=== PATIENT | female | born 1960 | race Caucasian/White ===

== ENCOUNTER 2017-03-16 14:50 | Emergency (ER) | payer MEDICARE, OTHER ==
[~2017-03-16] VITALS: Ht 167.6 cm; Wt 59.0 kg
[~2017-03-16 14:50] MED LIST: AMBI10TA PO; FENT50DI TD; INVE9TAB OR; TRAZ150T75 PO
[2017-03-16 14:52] VITALS: BP 111/65; PULSE 85; RESP 20; TEMP 98.9; O2SAT 94
[2017-03-16] MEDS ORDERED: MORP1TAB27 PO (15:37)
[2017-03-16] MEDS ORDERED: TRAZ300T2 PO (15:37)
[2017-03-16] MEDS ORDERED: AMBI10TA PO (15:37)
[2017-03-16] MEDS ORDERED: INVE9TAB PO (15:37)
[2017-03-16] MEDS ORDERED: OXYB5TAB8 PO (15:37)
--- NOTE | 2017-03-16 15:41 | PD ---
HPI . Foreign body Chief Complaint: Foreign Body Time Seen by Provider: 15:38 Travel History International Travel<30 days: No Contact w/Intl Traveler<30days: No Traveled to known affect area: No History of Present Illness HPI Patient presents stating that she has a probable foreign body in her left great toe. She states that she cut the toe 2 months ago. The laceration healed that she has continued to have a foreign body sensation. She subsequently presents to us today for evaluation. Her foreign body sensation is exacerbated by walking. PFSH Past Medical History ?: Not Social History Alcohol Use: No Tobacco Use: Yes Allergies-Medications (Allergen,Severity, Reaction): Coded Allergies: cyanocobalamin (vitamin B12) (Unverified Allergy, Severe, itch, 03/16/17) penicillin G (Unverified Allergy, Severe, rash, 03/16/17) Reported Meds & Prescriptions Reported Meds & Active Scripts Active Reported Ditropan (Oxybutynin Chloride) 5 Mg Tab 5 Mg PO HS Trazodone (Trazodone HCl) 300 Mg Tab 300 Mg PO HS Ambien (Zolpidem Tartrate) 10 Mg Tab 10 Mg PO HS PRN Morphine ER (Morphine Sulfate) 100 Mg Tab 100 Mg PO DAILY Invega (Paliperidone ER) 9 Mg Tab 9 Mg PO DAILY Review of Systems Except as stated in HPI: all other systems reviewed are Neg Physical Exam Narrative GENERAL: Awake and alert and in no acute distress. SKIN: Warm and dry with no rash or lesions. The laceration on the plantar surface of her left great toe is well-healed. HEAD: Cephalic/atraumatic. EYES: Pupils are equal. Extraocular movements are intact. NECK: Supple. RESPIRATORY: Nonlabored respirations. MUSCULOSKELETAL: Atraumatic. NEUROLOGICAL: Nonfocal. PSYCHIATRIC: Appropriate mood and affect. Data Data Last Documented VS Vital Signs Date Time Temp Pulse Resp B/P (MAP) Pulse Ox O2 Delivery O2 Flow Rate FiO2 03/16/17 14:52 98.9 85 20 111/65 (80) 94 Room Air Orders Orders Toe (Min 2vws) (03/16/17 15:50) MDM Medical Decision Making Medical Screen Exam Complete: Yes Emergency Medical Condition: Yes Differential Diagnosis Differential diagnosis includes but is not limited to simple foreign body, foreign body with wound infection, foreign body with cellulitis, foreign body with neurovascular compromise. Narrative Course Patient presents stating that she thinks she has a foreign body in her left great toe. X-ray is pending. Telma Espana MD Mar 16, 2017 15:41
--- NOTE | 2017-03-16 16:12 | RADRPT ---
EXAM DATE/TIME: 03/16/2017 15:55 [facility] COMPARISON: No previous studies available for comparison. INDICATIONS : Evaluate for foreign body in center of great toe after stepping on glass. MEDICAL HISTORY : None. SURGICAL HISTORY : None. ENCOUNTER: Initial ACUITY: 2 months PAIN SCORE: 3/10 LOCATION: Left Great toe FINDINGS: Examination of the first digit of the left foot demonstrates no evidence of fracture or dislocation. No radiopaque foreign bodies are seen. The soft tissues are intact. Reduced bone mineralization. CONCLUSION: 1. Osteopenia. 2. No radiopaque foreign body observed. Guerrero Grossman Jr., MD on March 16, 2017 at 16:10 Board Certified Radiologist. This report was verified electronically.
[2017-03-16] MEDS ORDERED: LIDOCAINE HCL 1% 50 ML VIAL INFIL ONE (17:00)
[2017-03-16] MEDS ORDERED: LIDOCAINE HCL 1% PF 30 ML VIAL ONE (17:08)
--- NOTE | 2017-03-16 17:15 | PD ---
Physical Exam Date Seen by Provider: Mar 16, 2017 Time Seen by Provider: 17:08 Narrative GENERAL: Well-nourished, well-developed female in no acute distress. Afebrile. Ambulatory. SKIN: Focused skin assessment warm/dry. There is a hard, palpable foreign body on the plantar surface of the left great toe which measures about 1 cm in diameter. No fluctuance, pointing, drainage, inflammation, or lymphangitis. HEAD: Normocephalic. EYES: No scleral icterus. No injection or drainage. NECK: Supple, trachea midline. No JVD or lymphadenopathy. CARDIOVASCULAR: Regular rate and rhythm without murmurs, gallops, or rubs. RESPIRATORY: Breath sounds equal bilaterally. No accessory muscle use. MUSCULOSKELETAL: No cyanosis, or edema. Full range of motion of the left great toe. Data Data Last Documented VS Vital Signs Date Time Temp Pulse Resp B/P (MAP) Pulse Ox O2 Delivery O2 Flow Rate FiO2 03/16/17 14:52 98.9 85 20 111/65 (80) 94 Room Air Orders Orders Toe (Min 2vws) (03/16/17 15:50) Lidocaine 1% Inj (50 Ml) (Xylocaine 1% I (03/16/17 17:00) Lidocaine Pf 1% Inj (Xylocaine-Mpf 1% In (03/16/17 17:08) Ed Discharge Order (03/16/17 17:34) MDM Medical Record Reviewed: Yes Supervised Visit with ANDREA: Yes Narrative Course Patient signed out to me pending x-ray results. In short, this is a 57-year-old female who complains of foreign body sensation to her left great toe for the past 2 months. States she stepped on broken glass 2 months ago and has had persistent pain over the area since the Physical exam reveals a hard, palpable mass to the plantar surface of the left great toe. It does not appear deep. No evidence of infection. Tender to palpation. X-ray is negative but I suspect radiolucent foreign body. Foreign body removal was performed. Patient discharged with wound care instructions and told to follow up with PCP or return for worsening symptoms. She understands and agrees to plan. Procedures Procedure Narrative Foreign body removal: The area was prepped and was sterilely draped. A subcutaneous wheal of 1% lidocaine with a total number 3 mL was used to anesthetize the area properly. A number 11 scalpel was used to make a 0.5 cm incision across the area of the foreign body. It was irrigated with normal saline. Sterile dressing applied. Diagnosis Primary Impression: Foreign body of toe Qualified Codes: S90.455A - Superficial foreign body, left lesser toe(s), initial encounter Referrals: Primary Care Physician Additional Instruction: Rest and drink plenty of fluids. Keep wound clean and dry. Apply triple antibiotic appointment daily. Follow-up with a primary care physician. Return to the emergency room for worsening symptoms. Med/Other Pt SpecificInfo: Prescription(s) given Disposition: 01 DISCHARGE HOME Condition: Stable Cecelia Bates Mar 16, 2017 17:15
== END 2017-03-16 17:56 | disposition home or self-care (01) ==
LOC: NEPD 14:50
DX: S90.452A Superficial foreign body, left great toe, initial encounter (principal); X58.XXXA Exposure to other specified factors, initial encounter; Z88.0 Allergy status to penicillin
CPT/HCPCS: 10120; 73660

== ENCOUNTER 2017-09-10 18:05 | Inpatient (IN) | payer MEDICARE ==
[~2017-09-10] VITALS: Ht 167.6 cm; Wt 64.1 kg
[~2017-09-10 18:05] MED LIST changes: -FENT50DI TD; -INVE9TAB OR; +INVE9TAB PO; +MORP1TAB27 PO; +OXYB5TAB8 PO; -TRAZ150T75 PO; +TRAZ300T2 PO
[2017-09-10] MEDS ORDERED: SODIUM CHLOR 0.9% 1000 ML INJ 800 ML IV ONE (18:19)
[2017-09-10] MEDS ORDERED: SODIUM CHLOR 0.9% 1000 ML INJ 1,000 ML IV ONE (18:19)
[2017-09-10 18:26] VITALS: BP 109/55; PULSE 113; RESP 21; TEMP 101.1; O2SAT 89
[2017-09-10] MEDS ORDERED: ACETAMINOPHEN 650 MG SUPP RECTAL ONE (18:30)
[2017-09-10] MEDS ORDERED: CEFEPIME INJ 2,000 MG in SODIUM CHLORIDE 0.9% INJ 100 ML IV ONE (18:30)
[2017-09-10] MEDS ORDERED: VANCOMYCIN INJ 1,000 MG in SODIUM CHLOR 0.9% 250 ML INJ 250 ML IV ONE (18:30)
--- NOTE | 2017-09-10 18:48 | RADRPT ---
EXAM DATE/TIME: 09/10/2017 18:26 [facility] COMPARISON: No previous studies available for comparison. INDICATIONS : Patient is non-responsive. RADIATION DOSE: 56.35 CTDIvol (mGy) MEDICAL HISTORY : Non-responsive. SURGICAL HISTORY : Non-responsive. ENCOUNTER: Initial ACUITY: 1 day PAIN SCALE: Non-responsive LOCATION: abdomen TECHNIQUE: Multiple contiguous axial images were obtained of the head. Using automated exposure control and adj ustment of the mA and/or kV according to patient size, radiation dose was kept as low as reasonably a chievable to obtain optimal diagnostic quality images. DICOM format image data is available electro nically for review and comparison. FINDINGS: CEREBRUM: The ventricles are normal for age. There is 9 mm area of spontaneously dense material in the right in sula area suspicious for some focal acute parenchymal hemorrhage. There is an area of encephalomalaci a involving the posterior left temporal lobe area suggestive of an old infarct.. No extra-axial flui d collections are seen. POSTERIOR FOSSA: The cerebellum and brainstem are intact. The 4th ventricle is midline. The cerebellopontine angle i s unremarkable. EXTRACRANIAL: The visualized portion of the orbits is intact. SKULL: The calvaria is intact. No evidence of skull fracture. CONCLUSION: 1. 9 mm area of spontaneously dense material in the right insular area suspicious for focal acute int raparenchymal hemorrhage. 2. 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 Boy Monet MD on September 10, 2017 at 18:42 Board Certified Radiologist. This report was verified electronically.
--- NOTE | 2017-09-10 18:51 | RADRPT ---
EXAM DATE/TIME: 09/10/2017 18:27 [facility] COMPARISON: No previous studies available for comparison. INDICATIONS : Patient is non responsive. ORAL CONTRAST: No oral contrast ingested. RADIATION DOSE: 6.77 CTDIvol (mGy) MEDICAL HISTORY : Non-responsive. SURGICAL HISTORY : Non-responsive. ENCOUNTER: Initial ACUITY: 1 day PAIN SCALE: Non-responsive LOCATION: abdomen TECHNIQUE: Volumetric scanning of the abdomen and pelvis was performed. Using automated exposure control and ad justment of the mA and/or kV according to patient size, radiation dose was kept as low as reasonably achievable to obtain optimal diagnostic quality images. DICOM format image data is available electro nically for review and comparison. The lack of IV contrast limits the diagnosis for certain organ pa thology. FINDINGS: LOWER LUNGS: Right lower lung atelectasis. Left lung base clear. LIVER: Homogeneous density without lesion. There is no dilation of the biliary tree. No calcified gallston es. SPLEEN: Normal size without lesion. PANCREAS: Within normal limits. KIDNEYS: Normal in size and shape. There is no mass, stone, or hydronephrosis. ADRENAL GLANDS: Within normal limits. VASCULAR: There is no aortic aneurysm. BOWEL/MESENTERY: The stomach, small bowel, and colon demonstrate no acute abnormality. There is no free intraperitone al air or fluid. Moderate stool throughout the colon. No inflammatory changes. The appendix is unrema rkable. ABDOMINAL WALL: Within normal limits. RETROPERITONEUM: There is no lymphadenopathy. BLADDER: No wall thickening or mass. REPRODUCTIVE: The uterus is normal in size. There is a left adnexal cyst measuring 3.1 x 1.8 cm. No free fluid in t he cul-de-sac. INGUINAL: There is no lymphadenopathy or hernia. MUSCULOSKELETAL: Within normal limits for patient age. CONCLUSION: 1. 3.1 x 1.8 cm left adnexal cyst. 2. Atelectasis in the right lower lung. 3. Otherwise, unremarkable examination for patient's age. Boy Monet MD on September 10, 2017 at 18:46 Board Certified Radiologist. This report was verified electronically.
[2017-09-10 18:53] LABS: AUTOMATED NEUTROPHIL # 9.9 TH/MM3 (1.8-7.7); BASOPHIL % 0.3 % (0.0-2.0); HEMATOCRIT 41.8 % (35.0-46.0); HEMOGLOBIN 14.2 GM/DL (11.6-15.3); LYMPH % 4.4 % (9.0-44.0); LYMPHOCYTE # 0.5 TH/MM3 (1.0-4.8); MEAN CELL VOLUME 94.1 FL (80.0-100.0); MEAN CORPUSCULAR HEMOGLOBIN 31.9 PG (27.0-34.0); MEAN CORPUSCULAR HGB CONC 33.9 % (32.0-36.0); MEAN PLATELET VOLUME 8.4 FL (7.0-11.0); MONO % 10.2 % (0.0-8.0); MONOCYTE # 1.2 TH/MM3 (0-0.9); NEUT % 85.1 % (16.0-70.0); PLATELET COUNT 240 TH/MM3 (150-450); RED BLOOD COUNT 4.44 MIL/MM3 (4.00-5.30); RED CELL DISTRIBUTION WIDTH 13.2 % (11.6-17.2); WHITE BLOOD COUNT 11.6 TH/MM3 (4.0-11.0)
[2017-09-10 19:02] VITALS: O2SAT 98
[2017-09-10 19:03] VITALS: BP 113/69; PULSE 92; RESP 16; O2SAT 98
--- NOTE | 2017-09-10 19:07 | RADRPT ---
EXAM DATE/TIME: 09/10/2017 18:42 [facility] COMPARISON: No previous studies available for comparison. INDICATIONS : Fever MEDICAL HISTORY : Unresponsive SURGICAL HISTORY : Unresponsive ENCOUNTER: Initial ACUITY: 1 day PAIN SCORE: Non-responsive. LOCATION: chest FINDINGS: A single view of the chest demonstrates the lungs to be symmetrically aerated without evidence of mas s, infiltrate or effusion. The cardiomediastinal contours are unremarkable. Osseous structures are intact. CONCLUSION: No acute disease. Boy Monet MD on September 10, 2017 at 19:04 Board Certified Radiologist. This report was verified electronically.
[2017-09-10 19:16] LABS: INTERNATIONAL NORMALIZED RATIO 1.1 RATIO; PROTHROMBIN TIME - PATIENT 11.3 SEC (9.8-11.6)
[2017-09-10 19:19] LABS: BACTERIA, URINE MANY /hpf; BILIRUBIN, URINE NEG (NEG); BLOOD, URINE NEG (NEG); GLUCOSE,URINE NEG (NEG); KETONE, URINE NEG (NEG); NITRITE,URINE NEG (NEG); PH, URINE 5.5 (5.0-8.5); SQUAMOUS EPITHELIAL CELL URINE 1 /hpf (0-5); URINE COLOR YELLOW (YELLW/STRAW); URINE LEUKOCYTE ESTERASE LARGE (NEG)
[2017-09-10 19:28] LABS: ALKALINE PHOSPHATASE 77 U/L (45-117); ALT (GPT) 12 U/L (10-53); TOTAL BILIRUBIN ADULT 0.4 MG/DL (0.2-1.0); TOTAL PROTEIN 6.9 GM/DL (6.4-8.2)
[2017-09-10 19:29] LABS: ALBUMIN 3.4 GM/DL (3.4-5.0); AST (GOT) 25 U/L (15-37); BICARBONATE 27.2 MEQ/L (21.0-32.0); BLOOD UREA NITROGEN 11 MG/DL (7-18); CALCIUM 8.1 MG/DL (8.5-10.1); CHLORIDE 104 MEQ/L (98-107); CREATININE 1.38 MG/DL (0.50-1.00); GLOMERULAR FILTRATION RATE 39 ML/MIN (>89); GLUCOSE,RANDOM 163 MG/DL (74-106); SODIUM (NA) 140 MEQ/L (136-145)
--- NOTE | 2017-09-10 19:50 | PD ---
HPI Chief Complaint: Altered Mental Status Time Seen by Provider: 18:19 Travel History International Travel<30 days: No Contact w/Intl Traveler<30days: No Traveled to known affect area: No History of Present Illness HPI 57-year-old female brought in by ambulance from home for evaluation of fever and altered mental status. Shortly after the patient arrived to the emergency department, the patient's fianc J Luis Zaragoza arrived and was able to provide history. He states that yesterday evening they went out and played pool and had a couple of drinks. The patient takes morphine for chronic pain from fibromyalgia, trazodone, and Ambien. She usually wakes up at around 10:00 AM. The patient's fianc usually wakes up earlier than she does. Today at around noon she was not yet awake. He tried to arouse her, but believe that may be alcohol mixed with her drinks was causing her to sleep then. Around 3:00 PM he noticed that she was still in bed and was minimally arousable. At around 4:30 PM she remained in the same state, so at this time he decided to call 911. Upon arrival the patient is awake, keeps her eyes open, has slight gaze deviation to the right, no focal deficits, follows commands, answers some yes and no questions but otherwise does not speak. She says no to having head or neck pain. She says yes when asked if she has abdominal pain and points to her lower abdomen. Patient and the patient's deny IV drug use. PFSH Past Medical History Diminished Hearing: No Fibromyalgia: Yes Tetanus Vaccination: Unknown ?: Unknown Past Surgical History Tonsillectomy: Yes Other Surgery: Yes (rhinoplasty ) Social History Alcohol Use: No Tobacco Use: Yes Substance Use: No Allergies-Medications (Allergen,Severity, Reaction): Coded Allergies: cyanocobalamin (vitamin B12) (Verified Allergy, Severe, itch, 09/10/17) penicillin G (Verified Allergy, Severe, rash, 09/10/17) Reported Meds & Prescriptions Reported Meds & Active Scripts Active Reported Ditropan (Oxybutynin Chloride) 5 Mg Tab 5 Mg PO HS Trazodone (Trazodone HCl) 300 Mg Tab 300 Mg PO HS Ambien (Zolpidem Tartrate) 10 Mg Tab 10 Mg PO HS PRN Morphine ER (Morphine Sulfate) 100 Mg Tab 100 Mg PO DAILY Invega (Paliperidone ER) 9 Mg Tab 9 Mg PO DAILY Review of Systems ROS Limitations: Clinical Condition, Altered Mental Status Physical Exam Narrative GENERAL: Well-developed, well-nourished, awake, alert, answers to yes and no questions only, no apparent distress. SKIN: Focused skin assessment warm/dry. HEAD: Atraumatic. Normocephalic. EYES: Pupils equal, round, 3 mm, reactive to light. Slight gaze deviation to the right. No scleral icterus. No injection or drainage. ENT: No nasal bleeding or discharge. Mucous membranes pink and moist. NECK: Trachea midline. No JVD. No nuchal rigidity. CARDIOVASCULAR: Tachycardic, rate 110, regular. RESPIRATORY: No accessory muscle use. Clear to auscultation. Breath sounds equal bilaterally. GASTROINTESTINAL: Abdomen soft, nondistended. Mild suprapubic tenderness without peritoneal signs. Normal bowel sounds. MUSCULOSKELETAL: No obvious deformities. No clubbing. No cyanosis. No edema. NEUROLOGICAL: Awake, slight gaze deviation to the right, otherwise no focal deficits. Answers yes/no questions only with slow response. PSYCHIATRIC: Unable to assess. Data Data Last Documented VS Vital Signs Date Time Temp Pulse Resp B/P (MAP) Pulse Ox O2 Delivery O2 Flow Rate FiO2 09/10/17 19:03 92 16 113/69 (84) 98 Nasal Cannula 2.00 09/10/17 18:26 101.1 Orders Orders Sepsis Workup Initiated (09/10/17 ) Complete Blood Count With Diff (09/10/17 18:19) Comprehensive Metabolic Panel (09/10/17 18:19) Prothrombin Time / Inr (Pt) (09/10/17 18:19) Act Partial Throm Time (Ptt) (09/10/17 18:19) Lactic Acid Sepsis Protocol (09/10/17 18:19) Urinalysis - C+S If Indicated (09/10/17 18:19) Influenzae A/B Antigen (09/10/17 18:19) Blood Culture (09/10/17 18:19) Chest, Single Ap (09/10/17 18:19) Blood Glucose (09/10/17 18:19) Ecg Monitoring (09/10/17 18:19) Iv Access Insert/Monitor (09/10/17 18:19) Oximetry (09/10/17 18:19) Oxygen Administration (09/10/17 18:19) Acetaminophen Supp (Tylenol Supp) (09/10/17 18:30) Ct Abd/Pel W/O Iv Contrast (09/10/17 18:19) Ct Brain W/O Iv Contrast(Rout) (09/10/17 18:19) Sodium Chlor 0.9% 1000 Ml Inj (Ns 1000 M (09/10/17 18:19) Sodium Chlor 0.9% 1000 Ml Inj (Ns 1000 M (09/10/17 18:19) Thyroid Stimulating Hormone (09/10/17 18:19) Ammonia (09/10/17 18:19) Vancomycin Inj (Vancomycin Inj) (09/10/17 18:30) Cefepime Inj (Maxipime Inj) (09/10/17 18:30) Consult Neurosurgery (09/10/17 ) Cta Brain W Iv Contrast W 3d (09/10/17 ) Cta Neck W Iv Contrast W 3d (09/10/17 ) Urine Culture (09/10/17 19:00) (Hub Use Only)Inp Phy Cons/Ref (09/10/17 ) Labs Laboratory Tests Test 09/10/17 18:30 09/10/17 19:00 White Blood Count 11.6 TH/MM3 Red Blood Count 4.44 MIL/MM3 Hemoglobin 14.2 GM/DL Hematocrit 41.8 % Mean Corpuscular Volume 94.1 FL Mean Corpuscular Hemoglobin 31.9 PG Mean Corpuscular Hemoglobin Concent 33.9 % Red Cell Distribution Width 13.2 % Platelet Count 240 TH/MM3 Mean Platelet Volume 8.4 FL Neutrophils (%) (Auto) 85.1 % Lymphocytes (%) (Auto) 4.4 % Monocytes (%) (Auto) 10.2 % Eosinophils (%) (Auto) 0.0 % Basophils (%) (Auto) 0.3 % Neutrophils # (Auto) 9.9 TH/MM3 Lymphocytes # (Auto) 0.5 TH/MM3 Monocytes # (Auto) 1.2 TH/MM3 Eosinophils # (Auto) 0.0 TH/MM3 Basophils # (Auto) 0.0 TH/MM3 CBC Comment DIFF FINAL Differential Comment Prothrombin Time 11.3 SEC Prothromb Time International Ratio 1.1 RATIO Activated Partial Thromboplast Time 24.3 SEC Blood Urea Nitrogen 11 MG/DL Creatinine 1.38 MG/DL Random Glucose 163 MG/DL Total Protein 6.9 GM/DL Albumin 3.4 GM/DL Calcium Level 8.1 MG/DL Alkaline Phosphatase 77 U/L Aspartate Amino Transf (AST/SGOT) 25 U/L Alanine Aminotransferase (ALT/SGPT) 12 U/L Total Bilirubin 0.4 MG/DL Sodium Level 140 MEQ/L Potassium Level 4.4 MEQ/L Chloride Level 104 MEQ/L Carbon Dioxide Level 27.2 MEQ/L Anion Gap 9 MEQ/L Estimat Glomerular Filtration Rate 39 ML/MIN Lactic Acid Level 2.0 mmol/L Ammonia 36 MCMOL/L Thyroid Stimulating Hormone 3rd Gen 0.818 uIU/ML Urine Color YELLOW Urine Turbidity HAZY Urine pH 5.5 Urine Specific Ruso 1.005 Urine Protein NEG mg/dL Urine Glucose (UA) NEG mg/dL Urine Ketones NEG mg/dL Urine Occult Blood NEG Urine Nitrite NEG Urine Bilirubin NEG Urine Urobilinogen LESS THAN 2.0 MG/DL Urine Leukocyte Esterase LARGE Urine RBC 1 /hpf Urine WBC 13 /hpf Urine Squamous Epithelial Cells 1 /hpf Urine Bacteria MANY /hpf Microscopic Urinalysis Comment CATH-CULTURE IND MDM Medical Decision Making Medical Screen Exam Complete: Yes Emergency Medical Condition: Yes Differential Diagnosis Sepsis, meningitis, encephalitis, intracranial abnormality, metabolic encephalopathy, UTI, pneumonia, bacteremia Narrative Course Patient was probably taken to CT for CT of the head shortly after my assessment. CT of the head shows a 9 mm area of spontaneous dense material in the right insular area suspicious for focal acute intraparenchymal hemorrhage. There is also focal encephalomalacia involving the left posterior temporal lobe suggestive of an old infarct. 7:10 PM: Case discussed with neurosurgeon Dr. Garcia. He recommends CTA of the brain and admission to the ICU. At this time the patient is awake and alert, follows commands, and her airway is patent and protected. Patient was empirically started on vancomycin and cefepime for her fever with change in mental status, tachycardia, and slight hypoxia. The patient is a heavy smoker smoking a pack per day and likely has COPD. Initial vital signs show heart rate 113, blood pressure 109/55, pulse ox 89% on room air, rectal temp of 101.1F. CBC: WBC 11.6, hemoglobin 14.2, hematocrit 41.8, platelets 240, neutrophils 85% , monocytes 10.2%. CMP is remarkable for creatinine 1.3, GFR 39, otherwise unremarkable. Ammonia level is 36. Lactic acid is 2. TSH is 0.818. Coags are within normal limits. UA: Large leukocyte esterase, 13 WBCs, many bacteria, culture indicated. Chest x-ray shows no acute disease. CT abdomen pelvis: 3.1 x 1.8 cm left adnexal cyst, atelectasis in the right lower lung, otherwise unremarkable exam for a patient of this age. Patient will be admitted to the ICU for further treatment and evaluation of intra-parenchymal hemorrhage, sepsis, UTI, altered mental status. The patient' s significant other/felix Zaragoza was made aware of all findings and plan for admission to the ICU. Critical Care Narrative Aggregate critical care time was 45 minutes. Time to perform other separately billable procedures was not included in the critical care time. My time did not include minutes spent treating any other patients simultaneously or on activities that did not directly contribute to the patient's treatment. The services I provided to this patient were to treat and/or prevent clinically significant deterioration that could result in: , permanent disability, worsening clinical condition, septic shock I provided critical care services requiring my management, as noted below: Chart data review, documentation time, medication orders and management, vital sign assessments/reviewing monitor data, ordering and reviewing lab tests, ordering and interpreting/reviewing x-rays and diagnostic studies, care of the patient and discussion of the patient with the admitting physicians. Diagnosis Primary Impression: Intraparenchymal hemorrhage of brain Additional Impressions: Sepsis Qualified Codes: A41.9 - Sepsis, unspecified organism UTI (urinary tract infection) Qualified Codes: N39.0 - Urinary tract infection, site not specified; R31.9 - Hematuria, unspecified Altered mental status Qualified Codes: R40.1 - Stupor Admitting Information Admitting Physician Requests: Admit Harmeet Parikh MD September 10, 2017 19:50
[2017-09-10] MEDS ORDERED: IOHEXOL 350 MG/ML 10 ML VIAL (for RAD DIAG) IVCONTRAST ONE (20:30)
--- NOTE | 2017-09-10 20:36 | RADRPT ---
EXAM DATE/TIME: 09/10/2017 20:05 [facility] COMPARISON: No previous studies available for comparison. INDICATIONS : Hemorrhage. Evaluate for anuerysm. IV CONTRAST: 80 cc Omnipaque 350 (iohexol) IV ; Cumulative dose for multiple exams. RADIATION DOSE: 8.98 CTDIvol (mGy) ; Combined studies MEDICAL HISTORY : Non-responsive. SURGICAL HISTORY : Non-responsive. ENCOUNTER: Initial ACUITY: 1 day PAIN SCALE: Non-responsive LOCATION: cranial TECHNIQUE: Volumetric scanning was performed using a multi-row detector CT scanner. The data was post processed with a variety of visualization algorithms including full volume maximum intensity projection, multi -planar sliding thin slab reformation, curved planar reformation, and surface rendering techniques. Using automated exposure control and adjustment of the mA and/or kV according to patient size, radiat ion dose was kept as low as reasonably achievable to obtain optimal diagnostic quality images. DICO M format image data is available electronically for review and comparison. FINDINGS: There is excellent visualization of the major intracranial arteries out to the second-order branch ve ssels. There is no evidence for aneurysm, vessel truncation or stenosis, and no evidence for vascula r malformation. CONCLUSION: Unremarkable CTA of the brain. Boy Monet MD on September 10, 2017 at 20:32 Board Certified Radiologist. This report was verified electronically.
[2017-09-10 20:42] VITALS: BP 125/98; PULSE 83; RESP 16; O2SAT 97
--- NOTE | 2017-09-10 20:47 | RADRPT ---
EXAM DATE/TIME: 09/10/2017 20:05 [place] COMPARISON: CT BRAIN W/O CONTRAST, September 10, 2017, 18:26. INDICATIONS : Hemorrhage. Evalutae for stenosis. IV CONTRAST: 80 cc Omnipaque 350 (iohexol) IV ; Cumulative dose for multiple exams. RADIATION DOSE: 8.98 CTDIvol (mGy) ; Combined studies MEDICAL HISTORY : Non-responsive. SURGICAL HISTORY : Non-responsive. ENCOUNTER: Initial ACUITY: 1 day PAIN SCALE: Non-responsive LOCATION: Bilateral carotids Elevated flow velocities and ICA/CCA ratios have been found to correlate with increased degrees of vessel stenosis, calculated as percentage of diameter relative to a normal segment of distal ICA/CCA. TECHNIQUE: Volumetric scanning was performed using a multirow detector CT scanner. The data was post processed with a variety of visualization algorithms including full-volume maximum intensity projection, multip lanar sliding thin-slab reformation, curved-planar reformation, and surface-rendering techniques. Us ing automated exposure control and adjustment of the mA and/or kV according to patient size, radiatio n dose was kept as low as reasonably achievable to obtain optimal diagnostic quality images. DICOM f ormat image data is available electronically for review and comparison. FINDINGS: AORTIC ARCH: There is a three-vessel origin of the great vessels from the aorta. No evidence of ostial narrowing. RIGHT CAROTID: The common carotid artery is intact. The carotid bulb has a normal configuration without ulceration o r narrowing. The internal carotid artery lumen is smooth without stenosis. There is a small calcifica tion along the proximal portion of the right internal carotid artery. The external carotid artery is intact. LEFT CAROTID: The common carotid artery is intact. The carotid bulb has a normal configuration without ulceration or narrowing. The internal carotid artery lumen is smooth without stenosis. The external carotid ar pau is intact. There is a small calcification along the proximal external carotid artery. VERTEBRALS: The vertebral arteries have a symmetric diameter. No stenotic lesions are seen. CONCLUSION: 1. There is some mild atherosclerotic changes of both carotid systems. 2. Otherwise, unremarkable CTA of the carotids with no evidence of a focal or high-grade stenosis. Boy Monet MD on September 10, 2017 at 20:41 Board Certified Radiologist. This report was verified electronically.
--- NOTE | 2017-09-10 21:45 | PD.CONS ---
HPI Service surgery Consult Requested By Dr Gabriel Reason for Consult [facility] Primary Care Physician Andrew Montague MD History of Present Illness This is a 57-year-old female with a history of fibromyalgia and chronic opiate use who presents with approximately 12 hours of worsening altered mental status. The patient is unable to provide really any reliable history, so her significant other who is with her provides all of the history. Apparently they had a few alcoholic beverages last night and she took her medications, which include Ambien and extended release morphine and then was somnolent this morning. When she was still somnolent this afternoon, he thought this was unusual for her and brought her into seek medical evaluation. In the emergency department, she was acutely altered and was noted to have a leftward gaze deviation. CT of the brain showed a small area in the right hemisphere of hyperdensity which was described as possibly being a acute intraparenchymal hemorrhage. CTA head neck is negative for aneurysm. She denies nausea, vomiting, diarrhea, constipation, fever, chills, or sick contacts Ms Torres was febrile in the emergency department to 101.1 Fahrenheit and has an elevated white count at 11,000 with a left shift. She had pyuria on urinalysis. Patient has an elevated creatinine of 1.3 with urine specific gravity is only 1008, which would suggest against dehydration as a cause of your acute kidney injury. She has elevated ammonia at 38. Neurosurgical consultation was requested. Review of Systems Review of systems is unobtainable from the patient due to her mental status. ROS Limitations: Clinical Condition, Altered Mental Status Past Family Social History Allergies: Coded Allergies: cyanocobalamin (vitamin B12) (Verified Allergy, Severe, itch, 09/10/17) penicillin G (Verified Allergy, Severe, rash, 09/10/17) Past Medical History Fibromyalgia Past Surgical History Tonsillectomy Rhinoplasty Reported Medications Ditropan (Oxybutynin Chloride) 5 Mg Tab 5 Mg PO HS Trazodone (Trazodone HCl) 300 Mg Tab 300 Mg PO HS Ambien (Zolpidem Tartrate) 10 Mg Tab 10 Mg PO HS PRN Morphine ER (Morphine Sulfate) 100 Mg Tab 100 Mg PO DAILY Invega (Paliperidone ER) 9 Mg Tab 9 Mg PO DAILY Active Ordered Medications Current Medications Acetaminophen (Tylenol Supp) 650 mg ONCE ONCE RECTAL Last administered on 09/10at 21:32; Start 09/10/17 at 18:30; Stop 09/10/17 at 18:31; Status DC Sodium Chloride 1,000 ml @ 1,000 mls/hr Q1H ONCE IV Last administered on at 19:00; Start 09/10/17 at 18:19; Stop 09/10/17 at 19:18; Status DC Sodium Chloride 800 ml @ 1,000 mls/hr Q48M ONCE IV Last administered on at 19:00; Start 09/10/17 at 18:19; Stop 09/10/17 at 19:06; Status DC Vancomycin HCl 1000 mg/Sodium Chloride 250 ml @ 250 mls/hr ONCE ONCE IV Last administered on 09/10/17at 21:32; Start 09/10/17 at 18:30; Stop 09/10/17 at 19:29 ; Status DC Cefepime HCl 2000 mg/Sodium Chloride 100 ml @ 200 mls/hr ONCE ONCE IV Last administered on 09/10/17at 20:41; Start 09/10/17 at 18:30; Stop 09/10/17 at 18:59 ; Status DC Iohexol (Omnipaque 350 Inj) 80 ml STK-MED ONCE IVCONTRAST Last administered on 09/10/17at 20:30; Start 09/10/17 at 20:30; Stop 09/10/17 at 20:31; Status DC Potassium Chloride 100 ml @ 50 mls/hr Q2H PRN IV For Potassium 2.8 - 3.2 mEq/L ; Start 09/10/17 at 22:45 Potassium Chloride 100 ml @ 50 mls/hr Q2H PRN IV For Potassium 2.8 - 3.2 mEq/L ; Start 09/10/17 at 22:45 Potassium Bicarb/ Potassium Chloride (K-Lyte Cl Eff) 50 meq UNSCH PRN PO For Potassium 3.3 - 3.5 mEq/L; Start 09/10/17 at 22:45 Potassium Chloride 100 ml @ 25 mls/hr UNSCH PRN IV For Potassium 3.3 - 3.5 mEq /L; Start 09/10/17 at 22:45 Potassium Chloride 100 ml @ 50 mls/hr Q2H PRN IV For Potassium 3.3 - 3.5 mEq/L ; Start 09/10/17 at 22:45 Magnesium Sulfate 4 gm/Sodium Chloride 100 ml @ 50 mls/hr UNSCH PRN IV For Magnesium 0.9 - 1.1 mg/dL; Start 09/10/17 at 22:45 Magnesium Oxide (Mag-Ox) 800 mg UNSCH PRN PO For Magnesium 1.2 - 1.6 mg/dL; Start 09/10/17 at 22:45 Magnesium Sulfate 2 gm/Sodium Chloride 100 ml @ 50 mls/hr UNSCH PRN IV For Magnesium 1.2 - 1.6 mg/dL; Start 09/10/17 at 22:45 Potassium Phosphate (K-Phos) 2,000 mg Q4H PRN PO For Phosphorus < 2.5 mg/dL; Start 09/10/17 at 22:45 Sodium Phosphate 30 mmol/Sodium Chloride 250 ml @ 42 mls/hr UNSCH PRN IV For Phosphorus < 2.5 mg/dL; Start 09/10/17 at 22:45 Potassium Phosphate (K-Phos) 2,000 mg UNSCH PRN PO/TUBE SEE LABEL COMMENTS; Start 09/10/17 at 22:45 Potassium Phosphate 30 mmol/ Sodium Chloride 260 ml @ 42 mls/hr UNSCH PRN IV SEE LABEL COMMENTS; Start 09/10/17 at 22:45 Cefepime HCl 2000 mg/Sodium Chloride 100 ml @ 200 mls/hr Q8H IV Last administered on 09/11/17at 04:14; Start 09/11/17 at 02:00 Pharmacy Profile Note 0 ml @ 0 mls/hr UNSCH OTHER ; Start 09/10/17 at 22:45 Lactulose (Lactulose Liq) 30 ml QID PO ; Start 09/10/17 at 22:45 Sodium Chloride 1,000 ml @ 84 mls/hr [id number] IV Last administered on at 11:01; Start 09/10/17 at 22:33 Sodium Chloride (NS Flush) 2 ml UNSCH PRN IV FLUSH FLUSH AFTER USING IV ACCESS ; Start 09/10/17 at 22:45 Sodium Chloride (NS Flush) 2 ml BID IV FLUSH Last administered on 09/11/17at 09: 04; Start 09/11/17 at 09:00 Famotidine (Pepcid) 20 mg Q12HR PO ; Start 09/11/17 at 09:00 Albuterol/ Ipratropium (Duoneb Neb) 1 ampule Q2HR NEB PRN INH WHEEZING; Start 09/10/17 at 22:45 Miscellaneous Information [place] 1 [id number] Last administered on 09/10/17at 22:45; Start 09/10/17 at 22:45 Chlorhexidine Gluconate (Chlorhexidine 2% Cloth) 3 pack Taper DAILY@04 TOP Last administered on 09/11/17at 02:58; Start 09/11/17 at 04:00; Stop 09/07/18 at 03:59 Chlorhexidine Gluconate (Chlorhexidine 2% Cloth) 3 pack UNSCH PRN TOP HYGIENIC CARE; Start 09/10/17 at 22:45 Senna/Docusate Sodium (Lali-Colace) 1 tab BID PO ; Start 09/11/17 at 09:00 Magnesium Hydroxide (Milk Of Magnesia Liq) 30 ml Q12H PRN PO Mild constipation ; Start 09/10/17 at 22:45 Sennosides (Senokot) 17.2 mg Q12H PRN PO Moderate constipation; Start 09/10/17 at 22:45 Bisacodyl (Dulcolax Supp) 10 mg DAILY PRN RECTAL SEVERE CONSITIPATION; Start at 22:45 Lactulose (Lactulose Liq) 30 ml DAILY PRN PO SEVERE CONSITIPATION; Start at 22:45 Haloperidol Lactate (Haldol Inj) 10 mg STAT STAT IV PUSH Last administered on 09/11/17at 02:43; Start 09/10/17 at 23:08; Stop 09/10/17 at 23:21; Status DC Midazolam HCl (Versed Inj) 5 mg STK-MED ONCE .ROUTE ; Start 09/10/17 at 23:08; Stop 09/10/17 at 23:09; Status DC Sodium Chloride 1,000 ml @ 999 mls/hr BOLUS ONCE IV Last administered on 09/11at 00:45; Start 09/11/17 at 00:45; Stop 09/11/17 at 01:45; Status DC Sodium Chloride 1,000 ml @ 999 mls/hr BOLUS ONCE IV Last administered on 09/11at 01:00; Start 09/11/17 at 01:00; Stop 09/11/17 at 02:00; Status DC Midazolam HCl (Versed Inj) 2 mg ONCE ONCE IV Last administered on 09/10/17at 23 :09; Start 09/10/17 at 23:00; Stop 09/11/17 at 02:52; Status DC Midazolam HCl (Versed Inj) 2.5 mg ONCE ONCE IV PUSH Last administered on at 09:03; Start 09/11/17 at 08:30; Stop 09/11/17 at 08:31; Status DC Vancomycin HCl 1000 mg/Sodium Chloride 250 ml @ 250 mls/hr Q12H IV ; Start at 11:00 Miscellaneous Information [place] [place] Info) SPECIFIC LAB TO BE DRAWN:VA... ONCE ONCE .XX ; Start 09/12/17 at 10:45; Stop 09/12/17 at 10:46 Family History Reviewed in the chart and found to be noncontributory to her acute illness Social History She smokes a pack per day. Rare and occasional alcohol use, although significant other did admit to a few drinks of alcohol one day prior to admission. Significant other denies any illicit substances. Physical Exam Vital Signs Vital Signs Date Time Temp Pulse Resp B/P (MAP) Pulse Ox O2 Delivery O2 Flow Rate FiO2 09/10/17 20:42 83 16 125/98 (107) 97 Room Air 2.00 09/10/17 19:03 92 16 113/69 (84) 98 Nasal Cannula 2.00 09/10/17 19:02 98 Nasal Cannula 2.00 09/10/17 19:02 98 Room Air 09/10/17 18:26 101.1 113 21 109/55 (73) 89 Physical Exam GENERAL: Middle-aged female, sitting in bed, awake, alert, but not interactive HEENT: Normocephalic. Atraumatic. Pupils 3 mm, bilaterally equal, round, reactive, conjugate. Mucous membranes are moist NECK: Trachea is midline. There is no JVD. CHEST: Equal chest rise. Room air. CARDIOVASCULAR: Normal rate, regular rhythm. Sinus. ABDOMEN: Soft, nontender, nondistended. No guarding. No hepatosplenomegaly. MUSCULOSKELETAL: Pulses 2+. No peripheral edema. NEUROLOGICAL: RASS -1. Patient is awake, looks around the room with a noted left gaze deviation or gaze preference. The patient answers very simple questions after repeat prompting. She is oriented to person only. Musculoskeletal strength is 5 out of 5 in all 4 extremities. Subjectively, the patient reports decreased sensation in the left upper extremity. Speech and language appear to be intact. Protect airway. Positive cough. Positive gag. Laboratory Laboratory Tests Test 09/10/17 18:30 09/10/17 19:00 White Blood Count 11.6 Red Blood Count 4.44 Hemoglobin 14.2 Hematocrit 41.8 Mean Corpuscular Volume 94.1 Mean Corpuscular Hemoglobin 31.9 Mean Corpuscular Hemoglobin Concent 33.9 Red Cell Distribution Width 13.2 Platelet Count 240 Mean Platelet Volume 8.4 Neutrophils (%) (Auto) 85.1 Lymphocytes (%) (Auto) 4.4 Monocytes (%) (Auto) 10.2 Eosinophils (%) (Auto) 0.0 Basophils (%) (Auto) 0.3 Neutrophils # (Auto) 9.9 Lymphocytes # (Auto) 0.5 Monocytes # (Auto) 1.2 Eosinophils # (Auto) 0.0 Basophils # (Auto) 0.0 CBC Comment DIFF FINAL Differential Comment Prothrombin Time 11.3 Prothromb Time International Ratio 1.1 Activated Partial Thromboplast Time 24.3 Blood Urea Nitrogen 11 Creatinine 1.38 Random Glucose 163 Total Protein 6.9 Albumin 3.4 Calcium Level 8.1 Alkaline Phosphatase 77 Aspartate Amino Transf (AST/SGOT) 25 Alanine Aminotransferase (ALT/SGPT) 12 Total Bilirubin 0.4 Sodium Level 140 Potassium Level 4.4 Chloride Level 104 Carbon Dioxide Level 27.2 Anion Gap 9 Estimat Glomerular Filtration Rate 39 Lactic Acid Level 2.0 Ammonia 36 Thyroid Stimulating Hormone 3rd Gen 0.818 Urine Color YELLOW Urine Turbidity HAZY Urine pH 5.5 Urine Specific [place] 1.005 Urine Protein NEG Urine Glucose (UA) NEG Urine Ketones NEG Urine Occult Blood NEG Urine Nitrite NEG Urine Bilirubin NEG Urine Urobilinogen LESS THAN 2.0 Urine Leukocyte Esterase LARGE Urine RBC 1 Urine WBC 13 Urine Squamous Epithelial Cells 1 Urine Bacteria MANY Microscopic Urinalysis Comment CATH-CULTURE IND Date/Time Source Procedure Growth Status 09/10/17 18:30 Blood Peripheral Aerobic Blood Culture Pending Received 09/10/17 18:30 Blood Peripheral Anaerobic Blood Culture Pending Received 09/10/17 19:00 Urine Catheterized Urine Urine Culture Pending Received Result Diagram: [id number]/[id number] Attending Statement 57-year-old female with new acute encephalopathy and possible small intraparenchymal hemorrhage. Her encephalopathy is out of proportion to the size and location of her intraparenchymal hemorrhage. I reviewed her radiological studies including s Head CT [id number]/10/[id number] Signed Impressions: Service Date/Time: Sunday, September 10, 2017 18:26 - CONCLUSION: 1. 9 mm area of spontaneously dense material in the right insular area suspicious for focal acute intraparenchymal hemorrhage. 2. The focal encephalomalacia involving the posterior left temporal lobe suggestive of an old infarct. Boy Monet MD Chest X-Ray [id number]/10/[id number] Signed Impressions: Service Date/Time: Sunday, September 10, 2017 18:42 - CONCLUSION: No acute disease. Boy Monet MD Abdomen/Pelvis CT [id number]/10/[id number] Signed Impressions: Service Date/Time: Sunday, September 10, 2017 18:27 - CONCLUSION: 1. 3.1 x 1.8 cm left adnexal cyst. 2. Atelectasis in the right lower lung. 3. Otherwise, unremarkable examination for patient's age. Boy Monet MD Neck CTA 09/10/17 0000 Signed Impressions: Service Date/Time: Sunday, September 10, 2017 20:05 - CONCLUSION: 1. There is some mild atherosclerotic changes of both carotid systems. 2. Otherwise, unremarkable CTA of the carotids with no evidence of a focal or high-grade stenosis. Boy Monet MD Head CTA 09/10/17 0000 Signed Impressions: Service Date/Time: Sunday, September 10, 2017 20:05 - CONCLUSION: Unremarkable CTA of the brain. Boy Monet MD Acute encephalopathy. Suspected right intraparenchymal hemorrhage Chronic opiate dependence Fibromyalgia Continue neuro checks in a serial fashion. A follow-up MRI of the head will be obtained to rule out an underlysing lesion such as hemangioma or small criptic AVM. Hold Ambien Hold morphine Hold trazodone EEG Neurology consultation Possible meningitis. Lumbar puncture performed. Antibiotics empirically as described below Respiratory: Aggressive pulmonary toilet Wean nasal cannula oxygen for goal SPO2 greater than 92% Cardiovascular: telemetry. Strict blood pressure control Acute kidney injury, unknown etiology, unknown baseline. Strict I/Os Urine electrolytes. Urine eosinophils. Renal ultrasound has been ordered Hyperammonemia. 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 Accu-Cheks and insulin sliding scale as needed Pepcid p.o. for prophylaxis of her stress ulcer DVT Prophylaxis. OLAYINKA singh and Carissa Mendiola VTE Risk Assessment: Mod/High Risk (score >= 2) Caprini Risk Assessment Model Point Value = 1 Point Value = 2 Point Value = 3 Point Value = 5 Age 41-60 Minor surgery BMI > 25 kg/m2 Swollen legs Varicose veins or History of unexplained or recurrent spontaneous Oral contraceptives or hormone replacement Sepsis (< 1 month) Serious lung disease, including pneumonia (< 1 month) Abnormal pulmonary function Acute myocardial infarction Congestive heart failure (< 1 month) History of inflammatory bowel disease Medical patient at bed rest Age 61-74 Arthroscopic surgery Major open surgery (> 45 min) Laparoscopic surgery (> 45 min) Malignancy Confined to bed (> 72 hours) Immobilizing plaster cast Central venous access Age >= 75 History of VTE Family history of VTE Factor V Leiden Prothrombin [id number] Lupus anticoagulant Anticardiolipin antibodies Elevated serum homocysteine Heparin-induced thrombocytopenia Other congenital or acquired thrombophilia Stroke (< 1 month) Elective arthroplasty Hip, pelvis, or leg fracture Acute spinal cord injury (< 1 month) Prophylaxis Regimen Total Risk Factor Score Risk Level Prophylaxis Regimen 0-1 Low Early ambulation 2 Moderate Order ONE of the following: *Sequential Compression Device (SCD) *Heparin 5000 units SQ BID 3-4 Higher Order ONE of the following medications: *Heparin 5000 units SQ TID *Enoxaparin/Lovenox 40 mg SQ daily (WT < 150 kg, CrCl > 30 mL/min) *Enoxaparin/Lovenox 30 mg SQ daily (WT < 150 kg, CrCl > 10-29 mL/min) *Enoxaparin/Lovenox 30 mg SQ BID (WT < 150 kg, CrCl > 30 mL/min) AND/OR *Sequential Compression Device (SCD) 5 or more Highest Order ONE of the following medications: *Heparin 5000 units SQ TID (Preferred with Epidurals) *Enoxaparin/Lovenox 40 mg SQ daily (WT < 150 kg, CrCl > 30 mL/min) *Enoxaparin/Lovenox 30 mg SQ daily (WT < 150 kg, CrCl > 10-29 mL/min) *Enoxaparin/Lovenox 30 mg SQ BID (WT < 150 kg, CrCl > 30 mL/min) AND *Sequential Compression Device (SCD) Aleksey Garcia MD September 10, 2017 21:45
[2017-09-10 21:54] VITALS: BP 125/98; PULSE 80; RESP 16; TEMP 99.8; O2SAT 98
[2017-09-10 22:33] VITALS: PULSE 80
[2017-09-10] MEDS: SODIUM CHLOR 0.9% 1000 ML INJ 1,000 ML IV SCH (22:33)
[2017-09-10] MEDS ORDERED: CHLORHEXIDINE GLUCONATE 2 % 1 PACK (2 CLOTHS) TOP PRN (22:45)
[2017-09-10] MEDS ORDERED: NURSING INFORMATION XX SCH (22:45)
[2017-09-10] MEDS ORDERED: RESP: ALBUTEROL 2.5 MG/IPRATROPIUM 0.5 MG NEB (PRN) INH (22:45)
[2017-09-10] MEDS ORDERED: Vancomycin Consult Pharmacy 1 EA OTHER SCH (22:45)
[2017-09-10] MEDS ORDERED: SODIUM CHLORIDE 0.9% FLUSH 10 ML FLUSH IV FLUSH PRN (22:45)
[2017-09-10] MEDS ORDERED: LACTULOSE SYRUP 20 GM/30 ML CUP PO PRN (22:45)
[2017-09-10] MEDS ORDERED: POTASSIUM PHOSPHATE MONOBASIC 500 MG TAB PO/TUBE PRN (22:45)
[2017-09-10] MEDS ORDERED: MAGNESIUM OXIDE 400 MG TAB PO PRN (22:45)
[2017-09-10] MEDS ORDERED: POTASSIUM PHOSPHATE MONOBASIC 500 MG TAB PO PRN (22:45)
[2017-09-10] MEDS ORDERED: MAGNESIUM SULFATE INJ 4 GM in SODIUM CHLORIDE 0.9% INJ 92 ML IV PRN (22:45)
[2017-09-10] MEDS ORDERED: POTASSIUM CHLOR 20 MEQ PREMIX 100 ML IV PRN ×2 (22:45)
[2017-09-10] MEDS ORDERED: BISACODYL 10 MG SUPP RECTAL PRN (22:45)
[2017-09-10] MEDS ORDERED: MAGNESIUM HYDROXIDE SUSP 30 ML CUP PO PRN (22:45)
[2017-09-10] MEDS ORDERED: SENNOSIDES 8.6 MG TAB PO PRN (22:45)
[2017-09-10] MEDS: LACTULOSE SYRUP 20 GM/30 ML CUP PO SCH (22:45)
[2017-09-10] MEDS ORDERED: MAGNESIUM SULFATE INJ 2 GM in SODIUM CHLORIDE 0.9% INJ 96 ML IV PRN (22:45)
[2017-09-10] MEDS ORDERED: POTASSIUM CHLOR 40 MEQ PREMIX 100 ML IV PRN ×2 (22:45)
[2017-09-10] MEDS ORDERED: SODIUM PHOSPHATE INJ 30 MMOL in SODIUM CHLOR 0.9% 250 ML INJ 240 ML IV PRN (22:45)
[2017-09-10] MEDS ORDERED: POTASSIUM CHLORIDE 25 MEQ EFFERVESCENT TAB PO PRN (22:45)
[2017-09-10] MEDS ORDERED: POTASSIUM PHOSPHATE INJ 30 MMOL in SODIUM CHLOR 0.9% 250 ML INJ 250 ML IV PRN (22:45)
--- NOTE | 2017-09-10 22:58 | HHI.HP ---
HPI Service Critical Care Medicine Primary Care Physician Andrew Montague MD Admission Diagnosis ICH, AMS, Sepsis, UTI Diagnosis: Chief Complaint: altered mental status Travel History International Travel<30 Days: No Contact w/Intl Traveler <30 Da: No Traveled to Known Affected Are: No History of Present Illness This is a 57-year-old female with a history of fibromyalgia and chronic opiate use who presents with approximately 12 hours of worsening altered mental status. The patient is unable to provide really any reliable history, so her significant other who is with her provides all of the history. Per him, they had a few alcoholic beverages last night and she took her night time meds which include Ambien and extended release morphine and then was somnolent this morning. When she was still somnolent this afternoon, he thought this was unusual for her and brought her into seek medical evaluation. In the emergency department, she was acutely altered and was noted to have a leftward gaze deviation. CT brain was remarkable for a small area in the right hemisphere of hyperdensity which was described as possibly being a acute intraparenchymal hemorrhage. CTA head neck is negative for aneurysm. Additionally, although the significant other denies any other symptoms or any changes to her health, including any complaints of abdominal pain, nausea, vomiting, diarrhea, constipation, fever, chills, or sick contacts, the patient was febrile in the emergency department to 101.1 Fahrenheit and has an elevated white count at 11, 000 with a left shift. Patient does have evidence of pyuria on urinalysis. Patient has an elevated creatinine of 1.3 with an unknown baseline, although her urine specific gravity is only 1008, which would suggest against dehydration as a cause of your acute kidney injury. He has a mildly elevated ammonia at 38. The remainder of her laboratory data is unremarkable. Review of systems is unobtainable from the patient due to her mental status. Review of Systems ROS Limitations: Clinical Condition, Altered Mental Status Past Family Social History Allergies: Coded Allergies: cyanocobalamin (vitamin B12) (Verified Allergy, Severe, itch, 09/10/17) penicillin G (Verified Allergy, Severe, rash, 09/10/17) Past Medical History Fibromyalgia Past Surgical History Tonsillectomy Rhinoplasty Reported Medications Ditropan (Oxybutynin Chloride) 5 Mg Tab 5 Mg PO HS Trazodone (Trazodone HCl) 300 Mg Tab 300 Mg PO HS Ambien (Zolpidem Tartrate) 10 Mg Tab 10 Mg PO HS PRN Morphine ER (Morphine Sulfate) 100 Mg Tab 100 Mg PO DAILY Invega (Paliperidone ER) 9 Mg Tab 9 Mg PO DAILY Active Ordered Medications See MAR Family History Reviewed in the chart and found to be noncontributory to her acute illness Social History Smokes a pack per day. Rare and occasional alcohol use, although significant other did admit to a few drinks of alcohol one day prior to admission. Significant other denies any illicit substances. Physical Exam Vital Signs Vital Signs Date Time Temp Pulse Resp B/P (MAP) Pulse Ox O2 Delivery O2 Flow Rate FiO2 09/10/17 22:20 09/10/17 21:54 99.8 80 16 125/98 (107) 98 Nasal Cannula 2.00 09/10/17 20:42 83 16 125/98 (107) 97 Room Air 2.00 09/10/17 19:03 92 16 113/69 (84) 98 Nasal Cannula 2.00 09/10/17 19:02 98 Nasal Cannula 2.00 09/10/17 19:02 98 Room Air 09/10/17 18:26 101.1 113 21 109/55 (73) 89 Physical Exam GENERAL: Middle-aged female, sitting in bed, awake, alert, but not interactive HEENT: Normocephalic. Atraumatic. Pupils 3 mm, bilaterally equal, round, reactive, conjugate. Mucous membranes are moist NECK: Trachea is midline. There is no JVD. CHEST: Equal chest rise. Room air. CARDIOVASCULAR: Normal rate, regular rhythm. Sinus. ABDOMEN: Soft, nontender, nondistended. No guarding. No hepatosplenomegaly. MUSCULOSKELETAL: Pulses 2+. No peripheral edema. NEUROLOGICAL: RASS -1. Patient is awake, looks around the room with a noted left gaze deviation or gaze preference. The patient answers very simple questions after repeat prompting. She is oriented to person only. Musculoskeletal strength is 5 out of 5 in all 4 extremities. Subjectively, the patient reports decreased sensation in the left upper extremity. Speech and language appear to be intact. Protect airway. Positive cough. Positive gag. Laboratory Laboratory Tests Test 09/10/17 18:30 09/10/17 19:00 White Blood Count 11.6 Red Blood Count 4.44 Hemoglobin 14.2 Hematocrit 41.8 Mean Corpuscular Volume 94.1 Mean Corpuscular Hemoglobin 31.9 Mean Corpuscular Hemoglobin Concent 33.9 Red Cell Distribution Width 13.2 Platelet Count 240 Mean Platelet Volume 8.4 Neutrophils (%) (Auto) 85.1 Lymphocytes (%) (Auto) 4.4 Monocytes (%) (Auto) 10.2 Eosinophils (%) (Auto) 0.0 Basophils (%) (Auto) 0.3 Neutrophils # (Auto) 9.9 Lymphocytes # (Auto) 0.5 Monocytes # (Auto) 1.2 Eosinophils # (Auto) 0.0 Basophils # (Auto) 0.0 CBC Comment DIFF FINAL Differential Comment Prothrombin Time 11.3 Prothromb Time International Ratio 1.1 Activated Partial Thromboplast Time 24.3 Blood Urea Nitrogen 11 Creatinine 1.38 Random Glucose 163 Total Protein 6.9 Albumin 3.4 Calcium Level 8.1 Alkaline Phosphatase 77 Aspartate Amino Transf (AST/SGOT) 25 Alanine Aminotransferase (ALT/SGPT) 12 Total Bilirubin 0.4 Sodium Level 140 Potassium Level 4.4 Chloride Level 104 Carbon Dioxide Level 27.2 Anion Gap 9 Estimat Glomerular Filtration Rate 39 Lactic Acid Level 2.0 Ammonia 36 Thyroid Stimulating Hormone 3rd Gen 0.818 Urine Color YELLOW Urine Turbidity HAZY Urine pH 5.5 Urine Specific Paramount 1.005 Urine Protein NEG Urine Glucose (UA) NEG Urine Ketones NEG Urine Occult Blood NEG Urine Nitrite NEG Urine Bilirubin NEG Urine Urobilinogen LESS THAN 2.0 Urine Leukocyte Esterase LARGE Urine RBC 1 Urine WBC 13 Urine Squamous Epithelial Cells 1 Urine Bacteria MANY Microscopic Urinalysis Comment CATH-CULTURE IND Date/Time Source Procedure Growth Status 09/10/17 18:30 Blood Peripheral Aerobic Blood Culture Pending Received 09/10/17 18:30 Blood Peripheral Anaerobic Blood Culture Pending Received 09/10/17 19:00 Urine Catheterized Urine Urine Culture Pending Received Result Diagram: 09/10/17 1830 09/10/17 183 Imaging Last Impressions Head CT 09/10/171818 Signed Impressions: Service Date/Time: Sunday, September 10, 2017 18:26 - CONCLUSION: 1. 9 mm area of spontaneously dense material in the right insular area suspicious for focal acute intraparenchymal hemorrhage. 2. The focal encephalomalacia involving the posterior left temporal lobe suggestive of an old infarct. Boy Monet MD Chest X-Ray 09/10/171818 Signed Impressions: Service Date/Time: Sunday, September 10, 2017 18:42 - CONCLUSION: No acute disease. Boy Monet MD Abdomen/Pelvis CT 09/10/171818 Signed Impressions: Service Date/Time: Sunday, September 10, 2017 18:27 - CONCLUSION: 1. 3.1 x 1.8 cm left adnexal cyst. 2. Atelectasis in the right lower lung. 3. Otherwise, unremarkable examination for patient's age. Boy Monet MD Neck CTA 09/10/17 0000 Signed Impressions: Service Date/Time: Sunday, September 10, 2017 20:05 - CONCLUSION: 1. There is some mild atherosclerotic changes of both carotid systems. 2. Otherwise, unremarkable CTA of the carotids with no evidence of a focal or high-grade stenosis. Boy Monet MD Head CTA 09/10/17 0000 Signed Impressions: Service Date/Time: Sunday, September 10, 2017 20:05 - CONCLUSION: Unremarkable CTA of the brain. Boy Monet MD Septic Shock Reassessment Septic shock perfusion: reassessment completed Caprini VTE Risk Assessment Caprini VTE Risk Assessment: Mod/High Risk (score >= 2) Caprini Risk Assessment Model Point Value = 1 Point Value = 2 Point Value = 3 Point Value = 5 Age 41-60 Minor surgery BMI > 25 kg/m2 Swollen legs Varicose veins or History of unexplained or recurrent spontaneous Oral contraceptives or hormone replacement Sepsis (< 1 month) Serious lung disease, including pneumonia (< 1 month) Abnormal pulmonary function Acute myocardial infarction Congestive heart failure (< 1 month) History of inflammatory bowel disease Medical patient at bed rest Age 61-74 Arthroscopic surgery Major open surgery (> 45 min) Laparoscopic surgery (> 45 min) Malignancy Confined to bed (> 72 hours) Immobilizing plaster cast Central venous access Age >= 75 History of VTE Family history of VTE Factor V Leiden Prothrombin [id number] Lupus anticoagulant Anticardiolipin antibodies Elevated serum homocysteine Heparin-induced thrombocytopenia Other congenital or acquired thrombophilia Stroke (< 1 month) Elective arthroplasty Hip, pelvis, or leg fracture Acute spinal cord injury (< 1 month) Prophylaxis Regimen Total Risk Factor Score Risk Level Prophylaxis Regimen 0-1 Low Early ambulation 2 Moderate Order ONE of the following: *Sequential Compression Device (SCD) *Heparin 5000 units SQ BID 3-4 Higher Order ONE of the following medications: *Heparin 5000 units SQ TID *Enoxaparin/Lovenox 40 mg SQ daily (WT < 150 kg, CrCl > 30 mL/min) *Enoxaparin/Lovenox 30 mg SQ daily (WT < 150 kg, CrCl > 10-29 mL/min) *Enoxaparin/Lovenox 30 mg SQ BID (WT < 150 kg, CrCl > 30 mL/min) AND/OR *Sequential Compression Device (SCD) 5 or more Highest Order ONE of the following medications: *Heparin 5000 units SQ TID (Preferred with Epidurals) *Enoxaparin/Lovenox 40 mg SQ daily (WT < 150 kg, CrCl > 30 mL/min) *Enoxaparin/Lovenox 30 mg SQ daily (WT < 150 kg, CrCl > 10-29 mL/min) *Enoxaparin/Lovenox 30 mg SQ BID (WT < 150 kg, CrCl > 30 mL/min) AND *Sequential Compression Device (SCD) Assessment and Plan Assessment and Plan Assessment: 57-year-old female with new acute encephalopathy and radiologic evidence of possible small intraparenchymal hemorrhage. Her encephalopathy is out of proportion to the size and location of her intraparenchymal hemorrhage. Given her new onset fever, although this could be her urinary tract infection, her encephalopathy and fever are concerning for a MOTEL KEEPER infection. Patient does not have any contraindication to lumbar puncture at this time. I had a long discussion with the significant other of the risks, benefits, and alternatives of lumbar puncture and its added diagnostic evaluation, and the significant other agrees to proceed. We will cover empirically with vancomycin and cefepime for both urinary tract infection and any MOTEL KEEPER infection at this time. Neurosurgery has been consulted to follow along for the intraparenchymal hemorrhage. We will hold all anticoagulation. Repeat head CT in the morning for interval change in intra-parenchymal hemorrhage. In the workup of the encephalopathy, will obtain MRI, EEG, and neurologic consultation. We will also check salicylate, acetaminophen levels as well as urine drug screen. Certainly with her acute kidney injury, poor metabolic clearance of her Ambien and significant extending release morphine could be causing her encephalopathy we will hold these at this time. Unclear source of her acute kidney injury as she does not appear to be intravascularly dehydrated. Very critically ill at this time with new acute encephalopathy and intracranial hemorrhage. Plan by systems: Neurologic: Acute encephalopathy Acute right intraparenchymal hemorrhage Chronic opiate dependence Fibromyalgia Frequent neurochecks Hold patient's Ambien Hold patient's morphine Hold patient's trazodone Repeat head CT in the morning LP today MRI EEG Neurology consultation Neurosurgery consulted and following: Dr. Garcia Antibiotics empirically as described below Respiratory: Aggressive pulmonary toilet Wean nasal cannula oxygen for goal SPO2 greater than 92% Cardiovascular: Continue with telemetry Renal: Acute kidney injury, unknown etiology, unknown baseline -- Strict I/Os Urine electrolytes Urine eosinophils Renal ultrasound FEN/GI: Hyperammonemia Normal saline maintenance fluids at 84 cc an hour ICU electively protocol Unclear etiology of elevated ammonia, LFTs are within normal limits Lactulose 4 times daily Swallow evaluation and advance diet per their orders Heme/ID: Urinary tract infection Fever Possible MOTEL KEEPER infection Continue vancomycin and cefepime Follow blood cultures, urine culture Lumbar puncture with cell count and culture Low threshold for adding ampicillin and acyclovir if the patient clinically declines at all, but will await cell count before adding these empirically. Endocrine: Hyperglycemia of critical illness -- SSI Prophylaxis: GI Prophylaxis Pepcid p.o. DVT Prophylaxis -- SCDs Holding pharmacologic DVT prophylaxis given head bleed Lines: Peripheral IVs Dispo: Admit ICU. Critically ill. This patient remains critically ill with one or more organ systems which are or may become a threat to life. I have spent in excess of 58 minutes discontinuously in the care and management of this patient. This time is exclusive of procedures, and includes, but is not limited to, evaluation of the patient, review of the medical record, discussions with family, consultants, nursing staff, or respiratory therapy, and documentation in the medical record. Humphrey Gabriel MD September 10, 2017 22:58
[2017-09-10] MEDS ORDERED: MIDAZOLAM HCL 2 MG/2 ML VIAL IV ONE (23:00)
[2017-09-10] MEDS ORDERED: MIDAZOLAM HCL 5 MG/ML VIAL (1 ML) ONE (23:08)
[2017-09-10] MEDS ORDERED: HALOPERIDOL LACTATE 5 MG/ML AMP IV PUSH STA (23:08)
[2017-09-10 23:16] LABS: ACETAMINOPHEN LESS THAN 2.0 MCG/ML (10.0-30.0)
[2017-09-11] VITALS (13 sets, daily range): BP systolic 76–137; BP diastolic 59–80; PULSE 61–99; RESP 17–29; TEMP 97.9–99.1; O2SAT 97–100
[2017-09-11 00:35] LABS: TOTAL PROTEIN,CSF 41.1 MG/DL (15.0-45.0)
--- NOTE | 2017-09-11 00:37 | PD.PROCEDR ---
Procedure Note Procedure Lumbar Puncture Diagnosis: Acute encephalopathy Indications: Fever and acute encephalopathy Consent: Verbal consent was obtained from the patient's significant other. Due to the emergent nature of the procedure and the patient significant encephalopathy, written consent was not obtained. I discussed the risks, benefits, and alternatives including but not limited to bleeding, infection, temporary or permanent nerve damage. We also discussed the possibility of foregoing lumbar puncture and treating empirically, but there is significant benefit in obtaining CSF samples for analysis given the degree of her encephalopathy. After discussion, the significant other expressed understanding of the risks and benefits and agrees to proceed. Anesthesia: 1% lidocaine locally Description of the Procedure: The patient was placed in the supine, right lateral decubitus position. The patient was prepped and draped sterilely. 1% lidocaine was infiltrated subcutaneously. A 20g Quincke needle was inserted into the L3-4 interspace and advanced until CSF was obtained. Opening pressure was obtained. CSF was drained in 4 incremental vials. The needle was removed and a dressing was applied. The patient was returned to the supine position. Instructions were given to remain flat x 2 hours. There were no immediate complications noted. There was minimal EBL. The patient tolerated the procedure well. Opening Pressure: 21 cm water Amount of CSF removed: 10 mLs Findings: Clear CSF. Elevated opening pressure. I personally performed the procedure. Humphrey Gabriel MD September 11, 2017 00:37
[2017-09-11] MEDS ORDERED: SODIUM CHLOR 0.9% 1000 ML INJ 1,000 ML IV ONE ×2 (00:45→01:00)
[2017-09-11 01:04] LABS: CSF LYMPHOCYTES 59 %; CSF MONOCYTES 40 %; CSF NEUTROPHILS 1 %
[2017-09-11 01:06] LABS: SUPERNATE COLOR TUBE #1 CLEAR (CLEAR); VOLUME TUBE # 1 2.1 ML
[2017-09-11 01:07] LABS: WBC TUBE #4 13 /MM3 (0-10)
[2017-09-11 01:08] LABS: RBC TUBE #4 0 /MM3
[2017-09-11 01:50] LABS: CREATININE, RANDOM URINE 72.5 MG/DL
[2017-09-11] MEDS: CHLORHEXIDINE GLUCONATE 2 % 1 PACK (2 CLOTHS) TOP SCH (02:58)
[2017-09-11] MEDS: CEFEPIME INJ 2,000 MG in SODIUM CHLORIDE 0.9% INJ 100 ML IV SCH ×3 (04:14→19:39)
[2017-09-11 05:33] LABS: HEMATOCRIT 38.8 % (35.0-46.0); HEMOGLOBIN 12.9 GM/DL (11.6-15.3); MEAN CELL VOLUME 94.7 FL (80.0-100.0); MEAN CORPUSCULAR HEMOGLOBIN 31.5 PG (27.0-34.0); MEAN CORPUSCULAR HGB CONC 33.3 % (32.0-36.0); MEAN PLATELET VOLUME 8.6 FL (7.0-11.0); PLATELET COUNT 195 TH/MM3 (150-450); RED CELL DISTRIBUTION WIDTH 13.5 % (11.6-17.2); WHITE BLOOD COUNT 9.5 TH/MM3 (4.0-11.0)
[2017-09-11 05:52] LABS: BICARBONATE 24.4 MEQ/L (21.0-32.0); CALCIUM 7.3 MG/DL (8.5-10.1); CREATININE 0.7 MG/DL (0.50-1.00)
[2017-09-11 06:04] LABS: CALCIUM-PROTEIN CORRECTED 7.8 MG/DL (8.5-10.1); TOTAL PROTEIN 6.1 GM/DL (6.4-8.2)
[2017-09-11] MEDS ORDERED: MIDAZOLAM HCL 5 MG/5 ML VIAL IV PUSH ONE (08:30)
--- NOTE | 2017-09-11 08:34 | HHI.CCPN ---
Subjective Remarks/Hospital Course This is a 57-year-old female with a history of fibromyalgia and chronic opiate use who presents with approximately 12 hours of worsening altered mental status. The patient is unable to provide really any reliable history, so her significant other who is with her provides all of the history. Per him, they had a few alcoholic beverages last night and she took her night time meds which include Ambien and extended release morphine and then was somnolent this morning. When she was still somnolent this afternoon, he thought this was unusual for her and brought her into seek medical evaluation. In the emergency department, she was acutely altered and was noted to have a leftward gaze deviation. CT brain was remarkable for a small area in the right hemisphere of hyperdensity which was described as possibly being a acute intraparenchymal hemorrhage. CTA head neck is negative for aneurysm. Additionally, although the significant other denies any other symptoms or any changes to her health, including any complaints of abdominal pain, nausea, vomiting, diarrhea, constipation, fever, chills, or sick contacts, the patient was febrile in the emergency department to 101.1 Fahrenheit and has an elevated white count at 11, 000 with a left shift. Patient does have evidence of pyuria on urinalysis. Patient has an elevated creatinine of 1.3 with an unknown baseline, although her urine specific gravity is only 1008, which would suggest against dehydration as a cause of your acute kidney injury. He has a mildly elevated ammonia at 38. The remainder of her laboratory data is unremarkable. Review of systems is unobtainable from the patient due to her mental status. 09/11: Alert, oriented now. For MRI today. Objective Vital Signs Date Time Temp Pulse Resp B/P (MAP) Pulse Ox O2 Delivery O2 Flow Rate FiO2 09/11/17 06:00 99 09/11/17 04:00 97.9 19 105/65 (78) 100 09/10/17 21:54 Nasal Cannula 2.00 Intake and Output 09/11/17 09/11/17 09/12/17 08:00 16:00 00:00 Intake Total 4450 ml Balance 4450 ml Result Diagram: 09/11/17 0338 09/11/17 0338 Imaging Last Impressions Head CT 09/10/17 [id number] Signed Impressions: Service Date/Time: Sunday, September 10, 2017 18:26 - CONCLUSION: 1. 9 mm area of spontaneously dense material in the right insular area suspicious for focal acute intraparenchymal hemorrhage. 2. The focal encephalomalacia involving the posterior left temporal lobe suggestive of an old infarct. Boy Monet MD Chest X-Ray 09/10/171818 Signed Impressions: Service Date/Time: Sunday, September 10, 2017 18:42 - CONCLUSION: No acute disease. Boy Monet MD Abdomen/Pelvis CT 09/10/171818 Signed Impressions: Service Date/Time: Sunday, September 10, 2017 18:27 - CONCLUSION: 1. 3.1 x 1.8 cm left adnexal cyst. 2. Atelectasis in the right lower lung. 3. Otherwise, unremarkable examination for patient's age. Boy Monet MD Neck CTA 09/10/17 0000 Signed Impressions: Service Date/Time: Sunday, September 10, 2017 20:05 - CONCLUSION: 1. There is some mild atherosclerotic changes of both carotid systems. 2. Otherwise, unremarkable CTA of the carotids with no evidence of a focal or high-grade stenosis. Boy Monet MD Head CTA 09/10/17 0000 Signed Impressions: Service Date/Time: Sunday, September 10, 2017 20:05 - CONCLUSION: Unremarkable CTA of the brain. Boy Monet MD Objective Remarks GENERAL: Middle-aged female, sitting in bed, awake, alert, interactive HEENT: Normocephalic. Atraumatic. Pupils 2 mm, bilaterally equal, round, reactive, conjugate. NECK: Trachea is midline. Airway widely patent. CHEST: Equal chest rise. Room air. No adventitious sounds. CARDIOVASCULAR: Normal rate, regular rhythm. Sinus. ABDOMEN: Soft, nontender, nondistended. No guarding. MUSCULOSKELETAL: Pulses 2+. No peripheral edema. NEUROLOGICAL: RASS 0. Patient is awake, looks around the room. The patient answers very simple questions after repeat prompting. She is oriented to person and place. Musculoskeletal strength is 5 out of 5 in all 4 extremities. Subjectively, the patient reports decreased sensation in the left upper extremity. Speech and language appear to be intact. Protect airway. Positive cough. Positive gag. A/P Assessment and Plan Assessment: 57-year-old female with new acute encephalopathy and radiologic evidence of possible small intraparenchymal hemorrhage. Her encephalopathy is out of proportion to the size and location of her intraparenchymal hemorrhage. Given her new onset fever, although this could be her urinary tract infection, her encephalopathy and fever are concerning for a FAMILY WORKER infection. Patient does not have any contraindication to lumbar puncture at this time. I had a long discussion with the significant other of the risks, benefits, and alternatives of lumbar puncture and its added diagnostic evaluation, and the significant other agrees to proceed. We will cover empirically with vancomycin and cefepime for both urinary tract infection and any FAMILY WORKER infection at this time. Neurosurgery has been consulted to follow along for the intraparenchymal hemorrhage. We will hold all anticoagulation. Repeat head CT in the morning for interval change in intra-parenchymal hemorrhage. In the workup of the encephalopathy, will obtain MRI, EEG, and neurologic consultation. We will also check salicylate, acetaminophen levels as well as urine drug screen. Certainly with her acute kidney injury, poor metabolic clearance of her Ambien and significant extending release morphine could be causing her encephalopathy we will hold these at this time. Unclear source of her acute kidney injury as she does not appear to be intravascularly dehydrated. Plan by systems: Neurologic: Acute encephalopathy Acute right intraparenchymal hemorrhage Chronic opiate dependence Fibromyalgia Frequent neurochecks Hold patient's Ambien Hold patient's morphine Hold patient's trazodone Repeat head CT in the morning LP today MRI EEG Neurology consultation Neurosurgery consulted and following: Dr. Garcia Antibiotics empirically as described below Respiratory: Aggressive pulmonary toilet Wean nasal cannula oxygen for goal SPO2 greater than 92% Cardiovascular: Continue with telemetry Renal: Acute kidney injury, unknown etiology, unknown baseline -- Strict I/Os Urine electrolytes Urine eosinophils Renal ultrasound FEN/GI: Hyperammonemia Normal saline maintenance fluids at 84 cc an hour ICU electively protocol Unclear etiology of elevated ammonia, LFTs are within normal limits Lactulose 4 times daily Swallow evaluation and advance diet per their orders Heme/ID: Urinary tract infection Fever Possible FAMILY WORKER infection Continue vancomycin and cefepime Follow blood cultures, urine culture Lumbar puncture with cell count and culture Low threshold for adding ampicillin and acyclovir if the patient clinically declines at all, but will await cell count before adding these empirically. LP normal. Endocrine: Hyperglycemia of critical illness -- SSI Prophylaxis: GI Prophylaxis Pepcid p.o. DVT Prophylaxis -- SCDs Holding pharmacologic DVT prophylaxis given head bleed Lines: Peripheral IVs Overall impression: Encephalopathy resolving. Most likely toxic and drug induced from home meds (ambien, morphine) Keaton Paniagua MD September 11, 2017 08:34
[2017-09-11] MEDS: DOCUSATE SODIUM 50 MG/SENNA 8.6 MG TAB PO SCH ×2 (09:00→21:15)
[2017-09-11] MEDS: FAMOTIDINE 20 MG TAB PO SCH ×2 (09:00→21:15)
[2017-09-11] MEDS: LACTULOSE SYRUP 20 GM/30 ML CUP PO SCH ×4 (09:00→21:15)
[2017-09-11] MEDS: SODIUM CHLORIDE 0.9% FLUSH 10 ML FLUSH IV FLUSH SCH ×2 (09:04→21:00)
--- NOTE | 2017-09-11 09:54 | RADRPT ---
EXAM DATE/TIME: 09/11/2017 09:17 [facility] COMPARISON: CTA BRAIN W 3D RECON, September 10, 2017, 20:05. CT BRAIN W/O CONTRAST, September 10, 2017, 18:26. INDICATIONS : Bleed. MEDICAL HISTORY : Fibromyalgia. SURGICAL HISTORY : None. ENCOUNTER: Initial ACUITY: 2 day PAIN SCORE: 0/10 LOCATION: cranial TECHNIQUE: Multiplanar, multisequence MRI of the brain was performed without contrast. FINDINGS: CEREBRUM: There is a small lobular 6 mm mass identified within the white matter at the junction of the right po sterior limb of the internal capsule and external capsule. This mass demonstrates punctate areas of i ncreased T1 and increased T2 signal with surrounding low T2 signal and blooming on gradient echo imag ing. No associated mass effect. No adjacent significant gliosis. Findings are characteristic of a cav ernous angioma. There is an area of old encephalomalacia involving the left anterior temporal lobe. WHITE MATTER: No significant signal abnormalities are seen in the white matter. POSTERIOR FOSSA: The cerebellum and brainstem are intact. The 4th ventricle is midline. The cerebellopontine angle is unremarkable. The cerebellar tonsils are normal in position. DIFFUSION IMAGING: No focal areas of restricted diffusion are seen. No evidence of acute infarction. EXTRACRANIAL: The visualized portions of the orbits and paranasal sinuses are unremarkable. 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 This corresponds with the area of increased density seen on comparison CT. Jolanta Zacarias MD on September 11, 2017 at 9:40 Board Certified Radiologist. This report was verified electronically.
--- NOTE | 2017-09-11 10:42 | RADRPT ---
EXAM DATE/TIME: 09/11/2017 10:03 [place] COMPARISON: No previous studies available for comparison. INDICATIONS : Increased BUN and creatinine. MEDICAL HISTORY : Fibromyalgia. Tobacco use. SURGICAL HISTORY : Tonsillectomy. Rhinoplasty. ENCOUNTER: Initial ACUITY: 1 day PAIN SCORE: Nonresponsive. LOCATION: Bilateral flank MEASUREMENTS: RIGHT KIDNEY: 9.2 x 4.8 x 4.8 cm LEFT KIDNEY: 10.3 x 5.4 x 5.3 cm FINDINGS: RIGHT KIDNEY: Renal cortex is normal in thickness and echotexture. No hydronephrosis, stone, or mass. LEFT KIDNEY: Renal cortex is normal in thickness and echotexture. No hydronephrosis, stone, or mass. BLADDER: Within normal limits given the degree of distension. CONCLUSION: Normal examination. Jolanta Zacarias MD on September 11, 2017 at 10:39 Board Certified Radiologist. This report was verified electronically.
[2017-09-11] MEDS: SODIUM CHLOR 0.9% 1000 ML INJ 1,000 ML IV SCH ×2 (11:01→22:23)
[2017-09-11] MEDS: VANCOMYCIN 1,000 MG/NS 250 ML IV SCH ×4 (11:23→22:54)
--- NOTE | 2017-09-11 11:32 | HHI.NSPN ---
Note Status Status: Progress Note Interval History Diagnosis Neurosurgery Interval History This is a 57-year-old female with a history of fibromyalgia and chronic opiate use who presents with approximately 12 hours of worsening altered mental status. The patient is unable to provide really any reliable history, so her significant other who is with her provides all of the history. Apparently they had a few alcoholic beverages last night and she took her medications, which include Ambien and extended release morphine and then was somnolent this morning. When she was still somnolent this afternoon, he thought this was unusual for her and brought her into seek medical evaluation. In the emergency department, she was acutely altered and was noted to have a leftward gaze deviation. CT of the brain showed a small area in the right hemisphere of hyperdensity which was described as possibly being a acute intraparenchymal hemorrhage. CTA head neck is negative for aneurysm. She denies nausea, vomiting, diarrhea, constipation, fever, chills, or sick contacts Ms Torres was febrile in the emergency department to 101.1 Fahrenheit and has an elevated white count at 11,000 with a left shift. She had pyuria on urinalysis. Patient has an elevated creatinine of 1.3 with urine specific gravity is only 1008, which would suggest against dehydration as a cause of your acute kidney injury. She has elevated ammonia at 38. Neurosurgical consultation was requested. 09/11. Much more awake today. Encephalopathy improving. MRI brain completed Labs, Micro, & Vital Signs Results Date Time Temp Pulse Resp B/P (MAP) Pulse Ox O2 Delivery O2 Flow Rate FiO2 09/11/17 06:00 99 09/11/17 04:00 97.9 70 19 105/65 (78) 100 09/11/17 04:00 68 09/11/17 02:00 61 09/11/17 00:00 88 09/11/17 00:00 98.0 72 29 76/59 (65) 100 09/10/17 22:33 80 09/10/17 22:20 09/10/17 21:54 99.8 80 16 125/98 (107) 98 Nasal Cannula 2.00 09/10/17 20:42 83 16 125/98 (107) 97 Room Air 2.00 09/10/17 19:03 92 16 113/69 (84) 98 Nasal Cannula 2.00 09/10/17 19:02 98 Nasal Cannula 2.00 09/10/17 19:02 98 Room Air 09/10/17 18:26 101.1 113 21 109/55 (73) 89 Constitutional Vital Signs Date Time Temp Pulse Resp B/P (MAP) Pulse Ox O2 Delivery O2 Flow Rate FiO2 09/11/17 06:00 99 09/11/17 04:00 97.9 70 19 105/65 (78) 100 09/11/17 04:00 68 09/11/17 02:00 61 09/11/17 00:00 88 09/11/17 00:00 98.0 72 29 76/59 (65) 100 09/10/17 22:33 80 09/10/17 22:20 09/10/17 21:54 99.8 80 16 125/98 (107) 98 Nasal Cannula 2.00 09/10/17 20:42 83 16 125/98 (107) 97 Room Air 2.00 09/10/17 19:03 92 16 113/69 (84) 98 Nasal Cannula 2.00 09/10/17 19:02 98 Nasal Cannula 2.00 09/10/17 19:02 98 Room Air 09/10/17 18:26 101.1 113 21 109/55 (73) 89 Physical Exam GENERAL: Middle-aged female, more, awake, alert, oriented to self HEENT: Normocephalic. Atraumatic. Pupils 3 mm, bilaterally equal, round, reactive, conjugate. Mucous membranes are moist NECK: Trachea is midline. There is no JVD. CHEST: Equal chest rise. Room air. CARDIOVASCULAR: Normal rate, regular rhythm. Sinus. ABDOMEN: Soft, nontender, nondistended. No guarding. No hepatosplenomegaly. MUSCULOSKELETAL: Pulses 2+. No peripheral edema. NEUROLOGICAL: RASS -1. Patient is awake, looks around the room with a noted left gaze deviation or gaze preference. The patient answers very simple questions after repeat prompting. She is oriented to person only. Musculoskeletal strength is 5 out of 5 in all 4 extremities. Subjectively, the patient reports decreased sensation in the left upper extremity. Speech and language appear to be intact. Protect airway. Positive cough. Positive gag. Medications Current Medications Current Medications Acetaminophen (Tylenol Supp) 650 mg ONCE ONCE RECTAL Last administered on 09/10at 21:32; Start 09/10/17 at 18:30; Stop 09/10/17 at 18:31; Status DC Sodium Chloride 1,000 ml @ 1,000 mls/hr Q1H ONCE IV Last administered on at 19:00; Start 09/10/17 at 18:19; Stop 09/10/17 at 19:18; Status DC Sodium Chloride 800 ml @ 1,000 mls/hr Q48M ONCE IV Last administered on at 19:00; Start 09/10/17 at 18:19; Stop 09/10/17 at 19:06; Status DC Vancomycin HCl 1000 mg/Sodium Chloride 250 ml @ 250 mls/hr ONCE ONCE IV Last administered on 09/10/17at 21:32; Start 09/10/17 at 18:30; Stop 09/10/17 at 19:29 ; Status DC Cefepime HCl 2000 mg/Sodium Chloride 100 ml @ 200 mls/hr ONCE ONCE IV Last administered on 09/10/17at 20:41; Start 09/10/17 at 18:30; Stop 09/10/17 at 18:59 ; Status DC Iohexol (Omnipaque 350 Inj) 80 ml STK-MED ONCE IVCONTRAST Last administered on 09/10/17at 20:30; Start 09/10/17 at 20:30; Stop 09/10/17 at 20:31; Status DC Potassium Chloride 100 ml @ 50 mls/hr Q2H PRN IV For Potassium 2.8 - 3.2 mEq/L ; Start 09/10/17 at 22:45 Potassium Chloride 100 ml @ 50 mls/hr Q2H PRN IV For Potassium 2.8 - 3.2 mEq/L ; Start 09/10/17 at 22:45 Potassium Bicarb/ Potassium Chloride (K-Lyte Cl Eff) 50 meq UNSCH PRN PO For Potassium 3.3 - 3.5 mEq/L; Start 09/10/17 at 22:45 Potassium Chloride 100 ml @ 25 mls/hr UNSCH PRN IV For Potassium 3.3 - 3.5 mEq /L; Start 09/10/17 at 22:45 Potassium Chloride 100 ml @ 50 mls/hr Q2H PRN IV For Potassium 3.3 - 3.5 mEq/L ; Start 09/10/17 at 22:45 Magnesium Sulfate 4 gm/Sodium Chloride 100 ml @ 50 mls/hr UNSCH PRN IV For Magnesium 0.9 - 1.1 mg/dL; Start 09/10/17 at 22:45 Magnesium Oxide (Mag-Ox) 800 mg UNSCH PRN PO For Magnesium 1.2 - 1.6 mg/dL; Start 09/10/17 at 22:45 Magnesium Sulfate 2 gm/Sodium Chloride 100 ml @ 50 mls/hr UNSCH PRN IV For Magnesium 1.2 - 1.6 mg/dL; Start 09/10/17 at 22:45 Potassium Phosphate (K-Phos) 2,000 mg Q4H PRN PO For Phosphorus < 2.5 mg/dL; Start 09/10/17 at 22:45 Sodium Phosphate 30 mmol/Sodium Chloride 250 ml @ 42 mls/hr UNSCH PRN IV For Phosphorus < 2.5 mg/dL; Start 09/10/17 at 22:45 Potassium Phosphate (K-Phos) 2,000 mg UNSCH PRN PO/TUBE SEE LABEL COMMENTS; Start 09/10/17 at 22:45 Potassium Phosphate 30 mmol/ Sodium Chloride 260 ml @ 42 mls/hr UNSCH PRN IV SEE LABEL COMMENTS; Start 09/10/17 at 22:45 Cefepime HCl 2000 mg/Sodium Chloride 100 ml @ 200 mls/hr Q8H IV Last administered on 09/11/17at 04:14; Start 09/11/17 at 02:00 Pharmacy Profile Note 0 ml @ 0 mls/hr UNSCH OTHER ; Start 09/10/17 at 22:45 Lactulose (Lactulose Liq) 30 ml QID PO ; Start 09/10/17 at 22:45 Sodium Chloride 1,000 ml @ 84 mls/hr [id number] IV Last administered on at 11:01; Start 09/10/17 at 22:33 Sodium Chloride (NS Flush) 2 ml UNSCH PRN IV FLUSH FLUSH AFTER USING IV ACCESS ; Start 09/10/17 at 22:45 Sodium Chloride (NS Flush) 2 ml BID IV FLUSH Last administered on 09/11/17at 09: 04; Start 09/11/17 at 09:00 Famotidine (Pepcid) 20 mg Q12HR PO ; Start 09/11/17 at 09:00 Albuterol/ Ipratropium (Duoneb Neb) 1 ampule Q2HR NEB PRN INH WHEEZING; Start 09/10/17 at 22:45 Miscellaneous Information ([facility]) 1 [id number] Last administered on 09/10/17at 22:45; Start 09/10/17 at 22:45 Chlorhexidine Gluconate (Chlorhexidine 2% Cloth) 3 pack Taper DAILY@04 TOP Last administered on 09/11/17at 02:58; Start 09/11/17 at 04:00; Stop 09/07/18 at 03:59 Chlorhexidine Gluconate (Chlorhexidine 2% Cloth) 3 pack UNSCH PRN TOP HYGIENIC CARE; Start 09/10/17 at 22:45 Senna/Docusate Sodium (Lali-Colace) 1 tab BID PO ; Start 09/11/17 at 09:00 Magnesium Hydroxide (Milk Of Magnesia Liq) 30 ml Q12H PRN PO Mild constipation ; Start 09/10/17 at 22:45 Sennosides (Senokot) 17.2 mg Q12H PRN PO Moderate constipation; Start 09/10/17 at 22:45 Bisacodyl (Dulcolax Supp) 10 mg DAILY PRN RECTAL SEVERE CONSITIPATION; Start at 22:45 Lactulose (Lactulose Liq) 30 ml DAILY PRN PO SEVERE CONSITIPATION; Start at 22:45 Haloperidol Lactate (Haldol Inj) 10 mg STAT STAT IV PUSH Last administered on 09/11/17at 02:43; Start 09/10/17 at 23:08; Stop 09/10/17 at 23:21; Status DC Midazolam HCl (Versed Inj) 5 mg STK-MED ONCE .ROUTE ; Start 09/10/17 at 23:08; Stop 09/10/17 at 23:09; Status DC Sodium Chloride 1,000 ml @ 999 mls/hr BOLUS ONCE IV Last administered on 09/11at 00:45; Start 09/11/17 at 00:45; Stop 09/11/17 at 01:45; Status DC Sodium Chloride 1,000 ml @ 999 mls/hr BOLUS ONCE IV Last administered on 09/11at 01:00; Start 09/11/17 at 01:00; Stop 09/11/17 at 02:00; Status DC Midazolam HCl (Versed Inj) 2 mg ONCE ONCE IV Last administered on 09/10/17at 23 :09; Start 09/10/17 at 23:00; Stop 09/11/17 at 02:52; Status DC Midazolam HCl (Versed Inj) 2.5 mg ONCE ONCE IV PUSH Last administered on at 09:03; Start 09/11/17 at 08:30; Stop 09/11/17 at 08:31; Status DC Vancomycin HCl 1000 mg/Sodium Chloride 250 ml @ 250 mls/hr Q12H IV ; Start at 11:00 Miscellaneous Information ([facility] Ordered Lab Info) SPECIFIC LAB TO BE DRAWN:VA... ONCE ONCE .XX ; Start 09/12/17 at 10:45; Stop 09/12/17 at 10:46 Attending Statement I reviewed her new radiological studies including her RI Renal Ultrasound 09/11/17 0000 Signed Impressions: Service Date/Time: Monday, September 11, 2017 10:03 - CONCLUSION: Normal examination. Jolanta Zacarias MD Brain MRI 09/11/17 0000 Signed Impressions: Service Date/Time: Monday, September 11, 2017 09:17 - CONCLUSION: Small cavernous angioma identified within the region of the junction of the right external capsule and posterior limb of the internal capsule. This corresponds with the area of increased density seen on comparison CT. Jolanta Zacarias MD Head CT [id number] Signed Impressions: Service Date/Time: Sunday, September 10, 2017 18:26 - CONCLUSION: 1. 9 mm area of spontaneously dense material in the right insular area suspicious for focal acute intraparenchymal hemorrhage. 2. The focal encephalomalacia involving the posterior left temporal lobe suggestive of an old infarct. Boy Monet MD Chest X-Ray [id number] Signed Impressions: Service Date/Time: Sunday, September 10, 2017 18:42 - CONCLUSION: No acute disease. Boy Monet MD Abdomen/Pelvis CT [id number] Signed Impressions: Service Date/Time: Sunday, September 10, 2017 18:27 - CONCLUSION: 1. 3.1 x 1.8 cm left adnexal cyst. 2. Atelectasis in the right lower lung. 3. Otherwise, unremarkable examination for patient's age. Boy Monet MD Neck CTA 09/10/17 0000 Signed Impressions: Service Date/Time: Sunday, September 10, 2017 20:05 - CONCLUSION: 1. There is some mild atherosclerotic changes of both carotid systems. 2. Otherwise, unremarkable CTA of the carotids with no evidence of a focal or high-grade stenosis. Boy Monet MD Head CTA 09/10/17 0000 Signed Impressions: Service Date/Time: Sunday, September 10, 2017 20:05 - CONCLUSION: Unremarkable CTA of the brain. Boy Monet MD Acute encephalopathy. Suspected right intraparenchymal hemorrhage Chronic opiate dependence Fibromyalgia Cavernours hemangioma. Continue neuro checks in a serial fashion. A follow- up MRI of the head showed a hemangioma. Recommend nonoperative treatment Hold Ambien Hold morphine Hold trazodone EEG Neurology consultation Possible meningitis. Status postLumbar puncture. Conmtinue Antibiotics empirically. Cultures are pending Respiratory: Aggressive pulmonary toilet Wean nasal cannula oxygen for goal SPO2 greater than 92% Cardiovascular: telemetry. Strict blood pressure control Acute kidney injury, unknown etiology, unknown baseline. Strict I/Os Urine electrolytes. Urine eosinophils. Renal ultrasound was negative for obstruction Hyperammonemia. Normal saline maintenance fluids at 84 cc an hour ICU electively protocol Unclear etiology of elevated ammonia, Lactulose 4 times daily Urinary tract infection Fever Possible CLAY CASTER infection Continue vancomycin and cefepime Follow blood cultures, urine culture Lumbar puncture with cell count and culture Hyperglycemia of critical illness. Accu-Cheks and insulin sliding scale as needed Pepcid p.o. for prophylaxis of her stress ulcer DVT Prophylaxis. OLAYINKA singh and Carissa Culveri VTE Risk Assessment: Mod/High Risk (score >= 2) Caprini Risk Assessment Model Point Value = 1 Point Value = 2 Point Value = 3 Point Value = 5 Age 41-60 Minor surgery BMI > 25 kg/m2 Swollen legs Varicose veins or History of unexplained or recurrent spontaneous Oral contraceptives or hormone replacement Sepsis (< 1 month) Serious lung disease, including pneumonia (< 1 month) Abnormal pulmonary function Acute myocardial infarction Congestive heart failure (< 1 month) History of inflammatory bowel disease Medical patient at bed rest Age 61-74 Arthroscopic surgery Major open surgery (> 45 min) Laparoscopic surgery (> 45 min) Malignancy Confined to bed (> 72 hours) Immobilizing plaster cast Central venous access Age >= 75 History of VTE Family history of VTE Factor V Leiden Prothrombin [id number] Lupus anticoagulant Anticardiolipin antibodies Elevated serum homocysteine Heparin-induced thrombocytopenia Other congenital or acquired thrombophilia Stroke (< 1 month) Elective arthroplasty Hip, pelvis, or leg fracture Acute spinal cord injury (< 1 month) Prophylaxis Regimen Total Risk Factor Score Risk Level Prophylaxis Regimen 0-1 Low Early ambulation 2 Moderate Order ONE of the following: *Sequential Compression Device (SCD) *Heparin 5000 units SQ BID 3-4 Higher Order ONE of the following medications: *Heparin 5000 units SQ TID *Enoxaparin/Lovenox 40 mg SQ daily (WT < 150 kg, CrCl > 30 mL/min) *Enoxaparin/Lovenox 30 mg SQ daily (WT < 150 kg, CrCl > 10-29 mL/min) *Enoxaparin/Lovenox 30 mg SQ BID (WT < 150 kg, CrCl > 30 mL/min) AND/OR *Sequential Compression Device (SCD) 5 or more Highest Order ONE of the following medications: *Heparin 5000 units SQ TID (Preferred with Epidurals) *Enoxaparin/Lovenox 40 mg SQ daily (WT < 150 kg, CrCl > 30 mL/min) *Enoxaparin/Lovenox 30 mg SQ daily (WT < 150 kg, CrCl > 10-29 mL/min) *Enoxaparin/Lovenox 30 mg SQ BID (WT < 150 kg, CrCl > 30 mL/min) AND *Sequential Compression Device (SCD) Discussed with her family Aleksey Garcia MD September 11, 2017 11:32
--- NOTE | 2017-09-11 11:38 | MB ---
cc: Jyoti Kruse MD DATE: 09/11/2017 REASON FOR CONSULTATION: Encephalopathy. HISTORY OF PRESENT ILLNESS: This is a 57-year-old woman with a history of fibromyalgia, chronic opiate use, follows also with [facility], comes in with a change in mental status. Her significant other stated that she had a few drinks last night, took her medications and was somnolent. He states that she has exacerbations of fibromyalgia every couple of years, so whether she was taking more medicine or not, it is unclear. She is just back from MRI. She is more alert now, but still not back to baseline. She is on numerous medications at home. What I saw from the list were Ambien as well as a high dose trazodone, morphine, as well as a psychiatric medication. PAST MEDICAL HISTORY: As stated of fibromyalgia, possible depression. Her significant other does not really know why she goes to [facility]. There may be some other issue that we do not know about as far as psychiatric versus substance abuse. MEDICATION: Apparently, she is on Invega 9 mg a day, morphine 100 mg daily ER, Ambien 10 mg at night as needed, trazodone 300 mg at night and Ditropan 5 mg at night. ALLERGIES: CYANOCOBALAMIN WELL PENICILLIN. SOCIAL HISTORY: There is history of use of alcohol and tobacco, amount unknown. PHYSICAL EXAMINATION: VITAL SIGNS: Temperature 99, pulse 68-70, respiratory rate 19, blood pressure 105/65. She had a temperature of 101.1 yesterday when she came in. NECK: Supple. I do not see any stiffness. No bruits. HEART: Regular. NEUROLOGIC: Awake and alert. She can tell me her name, but she knows she is at the hospital at [place] and it is the month of August, but she has a hard time keeping her attention and then she cannot tell me the day of the week or the year. Her pupils are reactive. Face is symmetrical. Tongue and lips are very dry. No facial asymmetry. Motor hernandez, she seems to be moving everything equally, withdrawing to painful stimuli. Toes are neutral. DTRs are 2+. Gait and cerebellar cannot be assessed at this time. LABORATORY DATA: Reviewed. Yesterday, white count of 11.6. Today, her CBC is normal. Coag panel is unremarkable. Chemistries are calcium 7.3. Lactic acid 2, corrected calcium 7.8. Her GFR was 86. Glucose 119. Tox screen positive for opiates. Urine 13 white cells. Culture is indicated. LP shows 13 white cells, 0 blood, 1 neutrophil, 59 lymphocytes, 40 monocytes, 85 glucose, protein is 41.1. VDRL cryptococcus antigen pending. Her encephalitis panel still pending. MRSA is not detected. Serology HSV PCR is all pending. Microbiology Gram stain was negative and her other cultures are pending as well. Her imaging of the brain showed a small cavernous angioma in the region of the junction of the right external capsule, posterior limb of the internal capsule that correspond to the increased density seen on CT. There is also old encephalomalacia in the left anterior temporal lobe. The patient cannot tell me if she has had a stroke and when. Abdomen and pelvis CT, there is a left adnexal cyst. Renal ultrasound was normal. Chest x-ray negative. IMPRESSION/PLAN: 1. Change in mental status, may have been due to her multiple medications. Rule out seizure. MRI completed. We do not need another CT today. Hold her morphine, Ambien and trazodone. I will order an EEG. Further recommendations will be made accordingly. Her LP results are still pending. Jyoti Kruse MD DF/TL , 11:00 AM , 11:37 AM
--- NOTE | 2017-09-11 16:39 | MG ---
cc: Jyoti Kruse MD DATE OF : 1960 AGE: [age] years old. REFERRING PHYSICIAN: Dr. Grossman EEG NUMBER: [id number] ROOM: 1311 NOTE: With photic stimulation. Awake, drowsy, confused. CT shows a possible cavernous malformation over the right hemisphere, old ischemic event left temporal. History of fibromyalgia on antibiotic. MEDICATIONS: Currently takes at home Ambien, trazodone and other medications. DESCRIPTION OF RECORD: There is a lot of artifact, but overall the patient has some mild slowing of 7 Hz, a lot of muscle eye movement artifact. EKG shows artifact as well but overall at times it does look sinus. There is a washcloth that is put over her eyes, trying to eliminate the eye movement artifact. Some mild slowing is seen. Photic stimulation: There is a driving response. IMPRESSION: Mild background slowing may be due to mild encephalopathic process versus medicine effect. No epileptiform features. Clinical correlation. Jyoti Kruse MD DF/TOMAS , 04:24 PM , 04:38 PM
--- NOTE | 2017-09-11 17:28 | EKG ---
Date Performed: 09/10/2017 Time Performed: 18:16:16 PTAGE: 57 years EKG: Sinus rhythm NORMAL ECG NO PREVIOUS TRACING DOCTOR: Mahin Real Interpretating Date/Time 09/11/2017 17:27:50
[2017-09-12] VITALS (10 sets, daily range): BP systolic 126–150; BP diastolic 69–76; PULSE 58–79; RESP 17–32; TEMP 97.9–99; O2SAT 93–98
[2017-09-12] MEDS: CEFEPIME INJ 2,000 MG in SODIUM CHLORIDE 0.9% INJ 100 ML IV SCH ×2 (03:05→09:48)
[2017-09-12] MEDS: CHLORHEXIDINE GLUCONATE 2 % 1 PACK (2 CLOTHS) TOP SCH (03:05)
[2017-09-12 04:38] LABS: HEMATOCRIT 37.2 % (35.0-46.0); HEMOGLOBIN 12.5 GM/DL (11.6-15.3); MEAN CORPUSCULAR HEMOGLOBIN 31.5 PG (27.0-34.0); MEAN CORPUSCULAR HGB CONC 33.5 % (32.0-36.0); MEAN PLATELET VOLUME 8.8 FL (7.0-11.0); PLATELET COUNT 182 TH/MM3 (150-450); RED BLOOD COUNT 3.96 MIL/MM3 (4.00-5.30); RED CELL DISTRIBUTION WIDTH 13.9 % (11.6-17.2); WHITE BLOOD COUNT 11.2 TH/MM3 (4.0-11.0)
[2017-09-12 05:03] LABS: BICARBONATE 24.9 MEQ/L (21.0-32.0); CALCIUM 8.1 MG/DL (8.5-10.1); CREATININE 0.55 MG/DL (0.50-1.00)
--- NOTE | 2017-09-12 07:05 | HHI.CCPN ---
Subjective Remarks/Hospital Course This is a 57-year-old female with a history of fibromyalgia and chronic opiate use who presents with approximately 12 hours of worsening altered mental status. The patient is unable to provide really any reliable history, so her significant other who is with her provides all of the history. Per him, they had a few alcoholic beverages last night and she took her night time meds which include Ambien and extended release morphine and then was somnolent this morning. When she was still somnolent this afternoon, he thought this was unusual for her and brought her into seek medical evaluation. In the emergency department, she was acutely altered and was noted to have a leftward gaze deviation. CT brain was remarkable for a small area in the right hemisphere of hyperdensity which was described as possibly being a acute intraparenchymal hemorrhage. CTA head neck is negative for aneurysm. Additionally, although the significant other denies any other symptoms or any changes to her health, including any complaints of abdominal pain, nausea, vomiting, diarrhea, constipation, fever, chills, or sick contacts, the patient was febrile in the emergency department to 101.1 Fahrenheit and has an elevated white count at 11, 000 with a left shift. Patient does have evidence of pyuria on urinalysis. Patient has an elevated creatinine of 1.3 with an unknown baseline, although her urine specific gravity is only 1008, which would suggest against dehydration as a cause of your acute kidney injury. He has a mildly elevated ammonia at 38. The remainder of her laboratory data is unremarkable. Review of systems is unobtainable from the patient due to her mental status. 09/11: Alert, oriented now. For MRI today. 09/12: clinically improving. awake, alert. MRI with evidence of old angioma which correlates with blush seen on CT. most likely encephalopathy was secondary to poor renal clearance of morphine and ambien. ROS negative. denies complaints. tolerating diet. Objective Vital Signs Date Time Temp Pulse Resp B/P (MAP) Pulse Ox O2 Delivery O2 Flow Rate FiO2 09/12/17 04:00 60 09/12/17 04:00 97.9 19 129/76 (93) 93 09/11/17 19:00 Room Air 09/11/17 07:00 2.00 Result Diagram: 09/12/17 0401 09/12/17 0401 Imaging Last Impressions Head CT 09/10/171818 Signed Impressions: Service Date/Time: Sunday, September 10, 2017 18:26 - CONCLUSION: 1. 9 mm area of spontaneously dense material in the right insular area suspicious for focal acute intraparenchymal hemorrhage. 2. The focal encephalomalacia involving the posterior left temporal lobe suggestive of an old infarct. Boy Monet MD Chest X-Ray 09/10/171818 Signed Impressions: Service Date/Time: Sunday, September 10, 2017 18:42 - CONCLUSION: No acute disease. Boy Monet MD Abdomen/Pelvis CT 09/10/171818 Signed Impressions: Service Date/Time: Sunday, September 10, 2017 18:27 - CONCLUSION: 1. 3.1 x 1.8 cm left adnexal cyst. 2. Atelectasis in the right lower lung. 3. Otherwise, unremarkable examination for patient's age. Boy Monet MD Neck CTA 09/10/17 0000 Signed Impressions: Service Date/Time: Sunday, September 10, 2017 20:05 - CONCLUSION: 1. There is some mild atherosclerotic changes of both carotid systems. 2. Otherwise, unremarkable CTA of the carotids with no evidence of a focal or high-grade stenosis. Boy Monet MD Head CTA 09/10/17 0000 Signed Impressions: Service Date/Time: Sunday, September 10, 2017 20:05 - CONCLUSION: Unremarkable CTA of the brain. Boy Monet MD Objective Remarks GENERAL: Middle-aged female, sitting in bed, awake, alert, interactive HEENT: Normocephalic. Atraumatic. Pupils 2 mm, bilaterally equal, round, reactive, conjugate. NECK: Trachea is midline. Airway widely patent. CHEST: Equal chest rise. Room air. CARDIOVASCULAR: Normal rate, regular rhythm. Sinus. ABDOMEN: Soft, nontender, nondistended. No guarding. MUSCULOSKELETAL: Pulses 2+. No peripheral edema. NEUROLOGICAL: RASS 0. CAM-. follows commands. back to neurologic baseline. A/P Assessment and Plan Assessment: 57-year-old female who was admitted with acute encephalopathy, fever , and concern for intraparenchymal hemorrhage. symptoms have now resolved. urine culture with GNRs awaiting speciation. Toxic encephalopathy secondary to poor renal clearance of morphine and ambien. clinically her symptoms have resolved. transfer out of ICU and consult hospitalist service. nearing safe time of discharge. would recommend follow up with her PCP before restarting ambien or extended release morphine. Plan by systems: Neurologic: Acute toxic encephalopathy- resolved. Chronic opiate dependence Fibromyalgia Hold patient's Ambien Hold patient's morphine Hold patient's trazodone LP negative. Neurology consultation Neurosurgery consulted and following: Dr. Garcia psychiatry to [facility] today. Respiratory: Aggressive pulmonary toilet Wean nasal cannula oxygen for goal SPO2 greater than 92% Cardiovascular: no active problems. Renal: Acute kidney injury, unknown etiology, unknown baseline- resolved. Renal ultrasound- negative. FEN/GI: Hyperammonemia saline lock ivf. ICU electrolyte protocol Unclear etiology of elevated ammonia, LFTs are within normal limits Lactulose 4 times daily regular diet. Heme/ID: Urinary tract infection Fever d/c vancomycin continue cefepime and narrow spectrum based on culture data. Follow blood cultures, urine culture LP normal. Endocrine: Hyperglycemia of critical illness -- SSI Prophylaxis: GI Prophylaxis Pepcid p.o. DVT Prophylaxis -- SCDs SQH. Lines: Peripheral IVs Overall impression: Encephalopathy resolved. Most likely toxic and drug induced from home meds (ambien, morphine). transfer out of ICU. clinically improving. Humphrey Gabriel MD September 12, 2017 07:05
[2017-09-12] MEDS: LACTULOSE SYRUP 20 GM/30 ML CUP PO SCH ×4 (09:00→21:00)
[2017-09-12] MEDS: SODIUM CHLORIDE 0.9% FLUSH 10 ML FLUSH IV FLUSH SCH ×2 (09:00→21:21)
[2017-09-12] MEDS: FAMOTIDINE 20 MG TAB PO SCH ×2 (09:48→21:21)
[2017-09-12] MEDS: DOCUSATE SODIUM 50 MG/SENNA 8.6 MG TAB PO SCH ×2 (09:48→21:00)
[2017-09-12] MEDS ORDERED: PHARMACY ORDERED LAB ONE (10:45)
--- NOTE | 2017-09-12 13:10 | PD.PSY.CON ---
Provisional Diagnosis Admission Date September 10, 2017 at 20:08 [place] I. unspecified psychosis, MDD with psychosis, Schizoaffective disorder, [place] II. deferred [place] III. Fibromyalgia, UTI, acute kidney injury History of Present Illness Service Psychiatry Consult Requested By Medicine Reason for Consult Psychosis Primary Care Physician Andrew Montague MD HPI The patient is 57-year-old woman, domiciled with her fianc in [facility] , unemployed, supported by [facility], with psychiatric history of psychosis, MDD with psychosis, 3 previous psychiatric hospitalizations, no previous suicide attempts , the patient is stable in Invega 9 mg, trazodone 150 mrem twice daily, Ambien 10 mg at bedtime, prescribed by outpatient psychiatrist in [facility], she has medical history of fibromyalgia and chronic opiate use who presents with approximately 12 hours of worsening altered mental status. On arrival, initially, the patient was unable to provide really any reliable history, so her significant other who is with her provides all of the history. Per him, they had a few alcoholic beverages last night and she took her night time meds which include Ambien and extended release morphine and then was somnolent this morning. When she was still somnolent this afternoon, he thought this was unusual for her and brought her into seek medical evaluation. In the emergency department, she was acutely altered and was noted to have a leftward gaze deviation. CT brain was remarkable for a small area in the right hemisphere of hyperdensity which was described as possibly being a acute intraparenchymal hemorrhage. CTA head neck is negative for aneurysm. Additionally, although the significant other denies any other symptoms or any changes to her health, including any complaints of abdominal pain, nausea, vomiting, diarrhea, constipation, fever, chills, or sick contacts, the patient was febrile in the emergency department to 101.1 Fahrenheit and has an elevated white count at 11,000 with a left shift. Patient does have evidence of pyuria on urinalysis. Patient has an elevated creatinine of 1.3 with an unknown baseline, although her urine specific gravity is only 1008, which would suggest against dehydration as a cause of your acute kidney injury. He has a mildly elevated ammonia at 38. The remainder of her laboratory data is unremarkable. Review of systems is unobtainable from the patient due to her mental status. Today clinically improving. awake, alert. MRI with evidence of old angioma which correlates with blush seen on CT. most likely encephalopathy was secondary to poor renal clearance of morphine and ambien. ROS negative. She was consulted to psychiatry for adjustment of medications. On psychiatric evaluation today I find a patient that is calm, cooperative and pleasant. She is accompanied by her fianc Cb. The EMR was reviewed, case was widely discussed with nurse in charge. Patient reports that she feels much better. She described her mood as "happy and good". The patient denies anhedonia, she denies hopelessness, helplessness, worthlessness, denies burning with appetite, energy, denies suicidal and homicidal ideation, she denies visual and auditory hallucinations. Patient reports that she has been compliant with her psychotropic and her outpatient psychiatric visits. She reports good response, no significant side effects so far. Her last psychiatric hospitalization was in 2007. Patient reports that in the past she is to be quite psychotic, hearing voices, quite depressed, usually the voices were very scary, commanding in type. The patient is fully oriented 3 at this moment. No fluctuation of consciousness, no attention deficit. During my evaluation, I cannot elicit any loosening of associations, no delusions, no ideas of reference, no param, no paranoia, no agitation or aggressive behavior. Now, her fianc and nurse, and stated that yesterday the patient was quite agitated, stated that she was incarcerated and many people were trying to hurt her. However, the clarify, the patient today is at baseline. Review of Systems Constitutional: DENIES: Diaphoretic episodes, Fatigue, Fever, Weight gain, Weight loss, Chills, Dizziness, Change in appetite, Night Sweats Endocrine: DENIES: Abnorml menstrual pattern, Heat/cold intolerance, Polydipsia , Polyuria, Polyphagia Eyes: DENIES: Blurred vision, Diplopia, Eye inflammation, Eye pain, Vision loss , Photosensitivity, Double Vision Ears, nose, mouth, throat: DENIES: Tinnitus, Hearing loss, Vertigo, Nasal discharge, Oral lesions, Throat pain, Hoarseness, Ear Pain, Running Nose, Epistaxis, Sinus Pain, Toothache, Odynophagia Respiratory: DENIES: Apneas, Cough, Snoring, Wheezing, Hemoptysis, Sputum production, Shortness of breath Cardiovascular: DENIES: Chest pain, Palpitations, Syncope, Dyspnea on Exertion , PND, Lower Extremity Edema, Orthopnea, Claudication Gastrointestinal: DENIES: Abdominal pain, Black stools, Bloody stools, Constipation, Diarrhea, Nausea, Vomiting, Difficulty Swallowing, Anorexia Genitourinary: DENIES: Abnormal vaginal bleeding, Dysmenorrhea, Dyspareunia, Sexual dysfunction, Urinary frequency, Urinary incontinence, Urgency, Hematuria , Dysuria, Nocturia, Vaginal discharge Musculoskeletal: DENIES: Joint pain, Muscle aches, Stiffness, Joint Swelling, Back pain, Neck pain Integumentary: DENIES: Abnormal pigmentation, Pruritus, Rash, Nail changes, Breast masses, Breast skin changes, Nipple discharge Hematologic/lymphatic: DENIES: Bruising, Lymphadenopathy Immunologic/allergic: DENIES: Eczema, Urticaria Neurologic: DENIES: Abnormal gait, Headache, Localized weakness, Paresthesias, Seizures, Speech Problems, Tremor, Poor Balance Psychiatric: DENIES: Anxiety, Confusion, Mood changes, Depression, Hallucinations, Agitation, Suicidal Ideation, Homicidal Ideation, Delusions Past Family Social History Coded Allergies: cyanocobalamin (vitamin B12) (Verified Allergy, Severe, itch, 09/10/17) penicillin G (Verified Allergy, Severe, rash, 09/10/17) Reported Medications Oxybutynin (Ditropan) 5 Mg Tab, 5 MG PO HS for Urinary Symptom Managemen, #60 TAB 0 Refills 03/16/17 Trazodone (Trazodone) 300 Mg Tab, 300 MG PO HS for Control Depression, #30 TAB 0 Refills 03/16/17 Zolpidem (Ambien) 10 Mg Tab, 10 MG PO HS Y for INSOMNIA, TAB 0 Refills 03/16/17 Morphine ER (Morphine ER) 100 Mg Tab, 100 MG PO DAILY for Pain Management, TAB 0 Refills 03/16/17 Paliperidone ER (Invega) 9 Mg Tab, 9 MG PO DAILY for Schizophrenia, #30 TAB 0 Refills 03/16/17 Current Medications Medications (Trade) Dose Ordered Sig/Ferny Route Start Time Stop Time Status Last Admin Potassium Chloride 100 ml @ 50 mls/hr Q2H PRN IV 09/10/17 22:45 Potassium Chloride 100 ml @ 50 mls/hr Q2H PRN IV 09/10/17 22:45 (K-Lyte Cl Eff) 50 meq UNSCH PRN PO 09/10/17 22:45 Potassium Chloride 100 ml @ 25 mls/hr UNSCH PRN IV 09/10/17 22:45 Potassium Chloride 100 ml @ 50 mls/hr Q2H PRN IV 09/10/17 22:45 Magnesium Sulfate 4 gm/Sodium Chloride 100 ml @ 50 mls/hr UNSCH PRN IV 09/10/17 22:45 (Mag-Ox) 800 mg UNSCH PRN PO 09/10/17 22:45 Magnesium Sulfate 2 gm/Sodium Chloride 100 ml @ 50 mls/hr UNSCH PRN IV 09/10/17 22:45 (K-Phos) 2,000 mg Q4H PRN PO 09/10/17 22:45 Sodium Phosphate 30 mmol/Sodium Chloride 250 ml @ 42 mls/hr UNSCH PRN IV 09/10/17 22:45 (K-Phos) 2,000 mg UNSCH PRN PO/TUBE 09/10/17 22:45 Potassium Phosphate 30 mmol/ Sodium Chloride 260 ml @ 42 mls/hr UNSCH PRN IV 09/10/17 22:45 Cefepime HCl 2000 mg/Sodium Chloride 100 ml @ 200 mls/hr Q8H IV 09/11/17 02:00 09/12/17 09:48 (Lactulose Liq) 30 ml QID PO 09/10/17 22:45 09/11/17 21:15 (NS Flush) 2 ml UNSCH PRN IV FLUSH 09/10/17 22:45 (NS Flush) 2 ml BID IV FLUSH 09/11/17 09:00 09/12/17 09:00 (Pepcid) 20 mg Q12HR PO 09/11/17 09:00 09/12/17 09:48 (Duoneb Neb) 1 ampule Q2HR NEB PRN INH 09/10/17 22:45 ([facility] Information) 1 Q361D XX 09/10/17 22:45 09/10/17 22:45 (Chlorhexidine 2% Cloth) 3 pack Taper DAILY@04 TOP 09/11/17 04:00 09/07/18 03:59 09/12/17 03:05 (Chlorhexidine 2% Cloth) 3 pack UNSCH PRN TOP 09/10/17 22:45 (Lali-Colace) 1 tab BID PO 09/11/17 09:00 09/12/17 09:48 (Milk Of Magnesia Liq) 30 ml Q12H PRN PO 09/10/17 22:45 (Senokot) 17.2 mg Q12H PRN PO 09/10/17 22:45 (Dulcolax Supp) 10 mg DAILY PRN RECTAL 09/10/17 22:45 (Lactulose Liq) 30 ml DAILY PRN PO 09/10/17 22:45 (Invega Er) 3 mg DAILY PO 09/12/17 14:00 (Desyrel) 50 mg HS PO 09/12/17 21:00 Family Psych History No family psychiatric history Social History Patient was born and raised in [place], she lives in [facility] with her fianc, no kids, unemployed, supported by [employer], she has a college education Patient's Strengths (min. 2) Outpatient psychiatric care Physical Exam No tremors, no EPS, no psychomotor agitation or retardation Vital Signs Vital Signs Date Time Temp Pulse Resp B/P (MAP) Pulse Ox O2 Delivery O2 Flow Rate FiO2 09/12/17 07:00 92 Room Air 09/12/17 06:00 58 09/12/17 04:00 97.9 19 129/76 (93) 09/11/17 07:00 2.00 I/O 09/12/17 09/12/17 09/13/17 08:00 16:00 00:00 Intake Total 480 ml Balance 480 ml Lab Results Test 09/12/17 04:01 09/12/17 10:15 White Blood Count 11.2 TH/MM3 Red Blood Count 3.96 MIL/MM3 Hemoglobin 12.5 GM/DL Hematocrit 37.2 % Mean Corpuscular Volume 94.0 FL Mean Corpuscular Hemoglobin 31.5 PG Mean Corpuscular Hemoglobin Concent 33.5 % Red Cell Distribution Width 13.9 % Platelet Count 182 TH/MM3 Mean Platelet Volume 8.8 FL Blood Urea Nitrogen 8 MG/DL Creatinine 0.55 MG/DL Random Glucose 115 MG/DL Calcium Level 8.1 MG/DL Sodium Level 144 MEQ/L Potassium Level 3.8 MEQ/L Chloride Level 111 MEQ/L Carbon Dioxide Level 24.9 MEQ/L Anion Gap 8 MEQ/L Estimat Glomerular Filtration Rate 114 ML/MIN Vancomycin Level Trough 9.0 MCG/ML Date/Time Source Procedure Growth Status 09/10/17 18:30 Blood Peripheral Aerobic Blood Culture - Preliminary NO GROWTH IN 2 DAYS Resulted 09/10/17 18:30 Anaerobic Blood Culture - Preliminary Gram Positive Cocci Resulted 09/10/17 23:50 Cerebral Spinal Fluid Lumbar Puncture Acid Fast Stain Pending Received 09/10/17 23:50 Cerebral Spinal Fluid Lumbar Puncture Mycobacterial Culture Pending Received 09/10/17 19:00 Urine Catheterized Urine Urine Culture - Final Escherichia Coli Complete Mental Status Examination Appearance: Appropriate Consciousness: Alert Orientation: x4 Motor Activity: Normal gait Speech: Unremarkable Language: Adequate Fund of Knowledge: Adequate Attention and Concentration: Adequate Memory: Unremarkable Mood: Appropriate Affect: Appropriate Thought Process & Associations: Intact Thought Content: Appropriate Hallucination Type: None Delusion Type: None Suicidal Ideation: No Suicidal Plan: No Suicidal Intention: No Homicidal Ideation: No Homicidal Plan: No Homicidal Intention: No Insight: Adequate Judgment: Adequate Assessment & Plan Problem List: (1) Unspecified psychosis ICD Codes: F29 - Unspecified psychosis not due to a substance or known physiological condition Assessment & Plan: On psychiatric evaluation today the patient does not present any evidence of concerning, significant subjective or objective symptomatology of depression, anxiety, param or psychosis. The patient denies suicidal and homicidal ideation, she denies visual and auditory hallucinations. The patient is calm, cooperative, even pleasant. Logical, coherent and relevant. No paranoia, no delusions, no agitation, no aggressive behavior, no ideas of reference, no loosening of associations were elicited. The patient is fully oriented 3 at the moment, no fluctuation of consciousness, no attention deficit, no gross cognitive impairment. It seems to me that her recent altered mental status as well as a recent described paranoia and psychosis could be secondary to delirium related with underlying medical conditions. Psychotropics needs to be resumed in order to avoid psychotic decompensation. We will start Invega 3 mg daily and trazodone 50 mg hs. She does not make criteria for involuntary psychiatric admission. I will follow-up. Assessment & Plan Estimated LOS: Aries Malone MD September 12, 2017 13:10
[2017-09-12] MEDS: PALIPERIDONE ER 3 MG TAB PO SCH (15:56)
[2017-09-12] MEDS ORDERED: cefTRIAXone INJ 1,000 MG in SODIUM CHLORIDE 0.9% INJ 100 ML IV SCH (16:00)
--- NOTE | 2017-09-12 17:36 | HHI.NSPN ---
Note Status Status: Progress Note Interval History Interval History This is a 57-year-old female with a history of fibromyalgia and chronic opiate use who presents with approximately 12 hours of worsening altered mental status. The patient is unable to provide really any reliable history, so her significant other who is with her provides all of the history. Apparently they had a few alcoholic beverages last night and she took her medications, which include Ambien and extended release morphine and then was somnolent this morning. When she was still somnolent this afternoon, he thought this was unusual for her and brought her into seek medical evaluation. In the emergency department, she was acutely altered and was noted to have a leftward gaze deviation. CT of the brain showed a small area in the right hemisphere of hyperdensity which was described as possibly being a acute intraparenchymal hemorrhage. CTA head neck is negative for aneurysm. She denies nausea, vomiting, diarrhea, constipation, fever, chills, or sick contacts Ms Torres was febrile in the emergency department to 101.1 Fahrenheit and has an elevated white count at 11,000 with a left shift. She had pyuria on urinalysis. Patient has an elevated creatinine of 1.3 with urine specific gravity is only 1008, which would suggest against dehydration as a cause of your acute kidney injury. She has elevated ammonia at 38. Neurosurgical consultation was requested. 09/11. Much more awake today. Encephalopathy improving. MRI brain completed 09/12: Eating her breakfast, feeling better today. Labs, Micro, & Vital Signs Results Date Time Temp Pulse Resp B/P (MAP) Pulse Ox O2 Delivery O2 Flow Rate FiO2 09/12/17 16:00 67 09/12/17 16:00 97.9 67 25 146/72 (96) 96 09/12/17 12:00 99.0 64 17 140/74 (96) 97 09/12/17 12:00 64 09/12/17 08:00 58 09/12/17 08:00 98.1 58 21 126/69 (88) 96 09/12/17 07:00 92 Room Air 09/12/17 06:00 58 09/12/17 04:00 60 09/12/17 04:00 97.9 60 19 129/76 (93) 93 09/12/17 02:00 73 09/12/17 00:00 98.1 72 32 133/70 (91) 97 09/12/17 00:00 73 09/11/17 22:00 73 09/11/17 20:00 64 09/11/17 20:00 98.0 65 23 137/80 (99) 97 09/11/17 19:00 98 Room Air 09/11/17 18:00 76 09/13/17 06:59 Intake Total 420 ml Balance 420 ml Constitutional Vital Signs Date Time Temp Pulse Resp B/P (MAP) Pulse Ox O2 Delivery O2 Flow Rate FiO2 09/12/17 16:00 67 09/12/17 16:00 97.9 67 25 146/72 (96) 96 09/12/17 12:00 99.0 64 17 140/74 (96) 97 09/12/17 12:00 64 09/12/17 08:00 58 09/12/17 08:00 98.1 58 21 126/69 (88) 96 09/12/17 07:00 92 Room Air 09/12/17 06:00 58 09/12/17 04:00 60 09/12/17 04:00 97.9 60 19 129/76 (93) 93 09/12/17 02:00 73 09/12/17 00:00 98.1 72 32 133/70 (91) 97 09/12/17 00:00 73 09/11/17 22:00 73 09/11/17 20:00 64 09/11/17 20:00 98.0 65 23 137/80 (99) 97 09/11/17 19:00 98 Room Air 09/11/17 18:00 76 09/13/17 06:59 Intake Total 420 ml Balance 420 ml Physical Exam General: Ms. Torres is comfortable, in no obvious distress during examination. HEENT: Normocephalic, atraumatic. Gross hearing intact bilaterally. Nonicteric sclera. Neck: soft, supple, Musculoskeletal: 5/5 in all muscle groups of both upper extremities including deltoid, biceps, triceps and counter person. In the lower extremities, strength is 5/5 in both iliopsoas, quadriceps, hamstrings, tibialis anterior, gastrocnemius, and extensor hallucis longus. Neuro: Awake. Can follow single and multi-step commands without apraxia. Cranial nerve examination: pupils to be equal, round, and reactive to light. Extra-ocular movements are intact with normal convergence. Facial motor symmetrical. Other cranial nerves are intact. Sensory examination is intact light touch in both the upper and lower extremities Cerebellar: intact finger to nose bilaterally Lungs: clear, nonlabored breathing, no wheezing Heart: Regular rate and rhythm Skin: warm and dry, no cyanosis. Medications Current Medications Current Medications Medications (Trade) Dose Ordered Sig/Ferny Route PRN Reason Start Time Stop Time Status Last Admin Dose Admin Potassium Chloride 100 ml @ 50 mls/hr Q2H PRN IV For Potassium 2.8 - 3.2 mEq/L 09/10/17 22:45 Potassium Chloride 100 ml @ 50 mls/hr Q2H PRN IV For Potassium 2.8 - 3.2 mEq/L 09/10/17 22:45 Potassium Bicarb/ Potassium Chloride (K-Lyte Cl Eff) 50 meq UNSCH PRN PO For Potassium 3.3 - 3.5 mEq/L 09/10/17 22:45 Potassium Chloride 100 ml @ 25 mls/hr UNSCH PRN IV For Potassium 3.3 - 3.5 mEq/L 09/10/17 22:45 Potassium Chloride 100 ml @ 50 mls/hr Q2H PRN IV For Potassium 3.3 - 3.5 mEq/L 09/10/17 22:45 Magnesium Sulfate 4 gm/Sodium Chloride 100 ml @ 50 mls/hr UNSCH PRN IV For Magnesium 0.9 - 1.1 mg/dL 09/10/17 22:45 Magnesium Oxide (Mag-Ox) 800 mg UNSCH PRN PO For Magnesium 1.2 - 1.6 mg/dL 09/10/17 22:45 Magnesium Sulfate 2 gm/Sodium Chloride 100 ml @ 50 mls/hr UNSCH PRN IV For Magnesium 1.2 - 1.6 mg/dL 09/10/17 22:45 Potassium Phosphate (K-Phos) 2,000 mg Q4H PRN PO For Phosphorus < 2.5 mg/dL 09/10/17 22:45 Sodium Phosphate 30 mmol/Sodium Chloride 250 ml @ 42 mls/hr UNSCH PRN IV For Phosphorus < 2.5 mg/dL 09/10/17 22:45 Potassium Phosphate (K-Phos) 2,000 mg UNSCH PRN PO/TUBE SEE LABEL COMMENTS 09/10/17 22:45 Potassium Phosphate 30 mmol/ Sodium Chloride 260 ml @ 42 mls/hr UNSCH PRN IV SEE LABEL COMMENTS 09/10/17 22:45 Lactulose (Lactulose Liq) 30 ml QID PO 09/10/17 22:45 09/11/17 21:15 Sodium Chloride (NS Flush) 2 ml UNSCH PRN IV FLUSH FLUSH AFTER USING IV ACCESS 09/10/17 22:45 Sodium Chloride (NS Flush) 2 ml BID IV FLUSH 09/11/17 09:00 09/12/17 09:00 Famotidine (Pepcid) 20 mg Q12HR PO 09/11/17 09:00 09/12/17 09:48 Albuterol/ Ipratropium (Duoneb Neb) 1 ampule Q2HR NEB PRN INH WHEEZING 09/10/17 22:45 Miscellaneous Information ([facility]) 1 [id number] XX 09/10/17 22:45 09/10/17 22:45 Chlorhexidine Gluconate (Chlorhexidine 2% Cloth) 3 pack Taper DAILY@04 TOP 09/11/17 04:00 09/07/18 03:59 09/12/17 03:05 Chlorhexidine Gluconate (Chlorhexidine 2% Cloth) 3 pack UNSCH PRN TOP HYGIENIC CARE 09/10/17 22:45 Senna/Docusate Sodium (Lali-Colace) 1 tab BID PO 09/11/17 09:00 09/12/17 09:48 Magnesium Hydroxide (Milk Of Magnesia Liq) 30 ml Q12H PRN PO Mild constipation 09/10/17 22:45 Sennosides (Senokot) 17.2 mg Q12H PRN PO Moderate constipation 09/10/17 22:45 Bisacodyl (Dulcolax Supp) 10 mg DAILY PRN RECTAL SEVERE CONSITIPATION 09/10/17 22:45 Lactulose (Lactulose Liq) 30 ml DAILY PRN PO SEVERE CONSITIPATION 09/10/17 22:45 Paliperidone Palmitate (Invega Er) 3 mg DAILY PO 09/12/17 14:00 09/12/17 15:56 Trazodone HCl (Desyrel) 50 mg HS PO 09/12/17 21:00 Ceftriaxone Sodium 1000 mg/ Sodium Chloride 100 ml @ 200 mls/hr Q24H IV 09/12/17 16:00 09/16/17 15:59 09/12/17 15:57 Medical Decision Making [facility] Remarks 57-year-old female presents with altered mental status, this is improving MRI brain with cavernous angioma, no other mass lesions, acute hemorrhage Plan Plan Remarks continue neurology management neuro checks Nonsurgical management of angioma no further neurosurgical intervention planned Will sign off call as needed Josie Bailey September 12, 2017 17:36
[2017-09-12] MEDS ORDERED: traZODone HCL 50 MG TAB PO SCH (21:00)
[2017-09-13 00:01] VITALS: BP 149/69; PULSE 51; RESP 20; TEMP 98.1; O2SAT 97
[2017-09-13 04:00] VITALS: BP 141/63; PULSE 53; RESP 19; TEMP 98.4; O2SAT 97
[2017-09-13] MEDS: CHLORHEXIDINE GLUCONATE 2 % 1 PACK (2 CLOTHS) TOP SCH (04:00)
[2017-09-13 04:02] VITALS: PULSE 64
[2017-09-13 06:22] LABS: HEMATOCRIT 36.6 % (35.0-46.0); HEMOGLOBIN 12.4 GM/DL (11.6-15.3); MEAN CORPUSCULAR HEMOGLOBIN 31.4 PG (27.0-34.0); MEAN CORPUSCULAR HGB CONC 33.8 % (32.0-36.0); MEAN PLATELET VOLUME 9.2 FL (7.0-11.0); PLATELET COUNT 211 TH/MM3 (150-450); RED BLOOD COUNT 3.94 MIL/MM3 (4.00-5.30); RED CELL DISTRIBUTION WIDTH 13.3 % (11.6-17.2); WHITE BLOOD COUNT 12.6 TH/MM3 (4.0-11.0)
[2017-09-13 07:18] LABS: CALCIUM 8.2 MG/DL (8.5-10.1); CREATININE 0.52 MG/DL (0.50-1.00)
[2017-09-13 07:19] LABS: BICARBONATE 24.4 MEQ/L (21.0-32.0)
[2017-09-13 08:00] VITALS: BP 144/68; PULSE 57; PULSE 74; RESP 21; TEMP 98.4; O2SAT 98
[2017-09-13] MEDS: DOCUSATE SODIUM 50 MG/SENNA 8.6 MG TAB PO SCH (09:00)
[2017-09-13] MEDS: LACTULOSE SYRUP 20 GM/30 ML CUP PO SCH (09:00)
[2017-09-13] MEDS: SODIUM CHLORIDE 0.9% FLUSH 10 ML FLUSH IV FLUSH SCH (09:00)
[2017-09-13 09:11] LABS: HSV 1,PCR Negative (Negative)
--- NOTE | 2017-09-13 09:14 | HHI.PR ---
Subjective Remarks pt ambulating in room and owens upon my arrival wants to go home. Objective Vitals heart reg lung cta abd /snt ext no edema Vital Signs Date Time Temp Pulse Resp B/P (MAP) Pulse Ox O2 Delivery O2 Flow Rate FiO2 09/13/17 04:02 64 09/13/17 04:00 98.4 53 19 141/63 (89) 97 09/13/17 04:00 Room Air 09/13/17 00:01 98.1 51 20 149/69 (95) 97 09/13/17 00:00 Room Air 09/12/17 23:52 79 09/12/17 20:00 Room Air 09/12/17 19:53 66 09/12/17 17:18 98.7 60 20 150/73 (98) 98 09/12/17 17:11 Room Air 2.00 09/12/17 16:00 67 09/12/17 16:00 97.9 67 25 146/72 (96) 96 09/12/17 12:00 99.0 64 17 140/74 (96) 97 09/12/17 12:00 64 Result Diagram: 09/13/17 0511 09/13/17 0511 A/P Problem List: (1) Altered mental status ICD Codes: R41.82 - Altered mental status, unspecified Status: Acute Plan: 1. presented with AMS/encephalopathy felt to be related to combination of etoh/morhine/ambien. the mri showed an angioma and not cva or ich. pt noted to have ecoli uti. she requested d/c home stop ambien. no etoh. f/u closely with her physicians she reports using bactrim in past w/out complication. will give to the uti. her uti sx's are much better today. (2) UTI (urinary tract infection) ICD Codes: N39.0 - Urinary tract infection, site not specified Status: Acute Problem Qualifiers (1) Altered mental status: Qualified Codes: R40.1 - Stupor (2) UTI (urinary tract infection): Qualified Codes: N39.0 - Urinary tract infection, site not specified; R31.9 - Hematuria, unspecified Haung Delgado MD September 13, 2017 09:14
[2017-09-13] MEDS ORDERED: POTASSIUM CHLORIDE 20 MEQ CONTROLLED RELEASE TAB PO ONE (09:15)
[2017-09-13] MEDS ORDERED: BACT800T5 PO (09:17)
--- NOTE | 2017-09-13 09:17 | HHI.DCPOC ---
Discharge Care Plan Diagnosis: (1) Altered mental status (2) UTI (urinary tract infection) Goals to Promote Your Health * To prevent worsening of your condition and complications * To maintain your health at the optimal level Directions to Meet Your Goals Take your medications as prescribed Follow your dietary instruction Follow activity as directed Keep your appointments as scheduled Take your immunizations and boosters as scheduled If your symptoms worsen call your PCP, if no PCP go to Urgent Care Center or Emergency Room Smoking is Dangerous to Your Health. Avoid second hand smoke Call the 24-hour hour crisis hotline for domestic abuse at Huang Delgado MD September 13, 2017 09:17
[2017-09-13] MEDS ORDERED: SULFAMETHOXAZOLE-TRIMETHOPRIM DS 800-160 MG TAB PO ONE (09:30)
[2017-09-13] MEDS: FAMOTIDINE 20 MG TAB PO SCH (09:38)
[2017-09-13] MEDS: PALIPERIDONE ER 3 MG TAB PO SCH (09:39)
--- NOTE | 2017-09-13 12:02 | HHI.PYPN ---
Subjective Remarks The patient was seen today for psychiatric reevaluation. EMR was reviewed. On psychiatric evaluation today the patient is calm, cooperative and pleasant. The patient reports good mood, denies depressive symptoms. The patient says that she is happy that she is going to be discharged soon. She has no have any visual or auditory hallucinations. She denies suicidal and homicidal ideation. The patient is fully oriented 3, no confusion, no attention deficit present. Compliant with her medications, no significant side effects. Review of Systems Except as stated in HPI: all other systems reviewed are Neg Mental Status Examination Appearance: Appropriate Consciousness: Alert Orientation: x4 Motor Activity: Normal gait Speech: Unremarkable Language: Adequate Fund of Knowledge: Adequate Attention and Concentration: Adequate Memory: Unremarkable Mood: Appropriate Affect: Appropriate Thought Process & Associations: Intact Thought Content: Appropriate Hallucination Type: None Delusion Type: None Suicidal Ideation: No Suicidal Plan: No Suicidal Intention: No Homicidal Ideation: No Homicidal Plan: No Homicidal Intention: No Insight: Adequate Judgment: Adequate Results Labs Test 09/13/17 05:11 White Blood Count 12.6 TH/MM3 Red Blood Count 3.94 MIL/MM3 Hemoglobin 12.4 GM/DL Hematocrit 36.6 % Mean Corpuscular Volume 93.0 FL Mean Corpuscular Hemoglobin 31.4 PG Mean Corpuscular Hemoglobin Concent 33.8 % Red Cell Distribution Width 13.3 % Platelet Count 211 TH/MM3 Mean Platelet Volume 9.2 FL Blood Urea Nitrogen 4 MG/DL Creatinine 0.52 MG/DL Random Glucose 111 MG/DL Calcium Level 8.2 MG/DL Sodium Level 143 MEQ/L Potassium Level 3.1 MEQ/L Chloride Level 108 MEQ/L Carbon Dioxide Level 24.4 MEQ/L Anion Gap 11 MEQ/L Estimat Glomerular Filtration Rate 122 ML/MIN Date/Time Source Procedure Growth Status 09/10/17 18:30 Blood Peripheral Aerobic Blood Culture - Preliminary NO GROWTH IN 3 DAYS Resulted 09/10/17 18:30 Anaerobic Blood Culture - Preliminary Staphylococcus Epidermidis Resulted 09/10/17 23:50 Cerebral Spinal Fluid Lumbar Puncture Acid Fast Stain - Final NO ACID FAST BACILLI SEEN Resulted 09/10/17 23:50 Cerebral Spinal Fluid Lumbar Puncture Mycobacterial Culture Pending Resulted 09/10/17 19:00 Urine Catheterized Urine Urine Culture - Final Escherichia Coli Complete Vitals/IOs Vital Signs Date Time Temp Pulse Resp B/P (MAP) Pulse Ox O2 Delivery O2 Flow Rate FiO2 09/13/17 08:00 98.4 57 21 144/68 (93) 98 09/13/17 07:00 Room Air 09/12/17 17:11 2.00 Assessment & Plan Problem List: (1) Unspecified psychosis ICD Codes: F29 - Unspecified psychosis not due to a substance or known physiological condition Assessment & Plan: Continue current psychotropic regimen. Medication to be titrated up by psychiatrist in outpatient basis. She does not meet criteria for involuntary psychiatric admission. Extensive psychoeducation, supportive psychotherapy provided Assessment & Plan Estimated LOS: days Justification for Cont. Inpt. No indication for psychiatric admission. Aries Maier MD September 13, 2017 12:02
[2017-09-14 00:09] LABS: CSF CRYPTOCOCCUS AG CONF ND (NOT DETECTD)
[2017-09-14 17:51] LABS: CALIFORNIA ENCEPH AB IGG <1:4 (<1:4); CALIFORNIA ENCEPH AB IGM <1:4 (<1:4); EAST EQUINE ENCEPH AB IGG <1:4 (<1:4); EAST EQUINE ENCEPH AB IGM <1:4 (<1:4); ST LOUIS ENCEPH AB IGG <1:4 (<1:4); ST LOUIS ENCEPH AB IGM <1:4 (<1:4); WEST EQUINE ENCEPH AB IGG <1:4 (<1:4); WEST EQUINE ENCEPH AB IGM <1:4 (<1:4)
[2017-09-14 23:54] LABS: VDRL CSF NON-REACTIVE (NON-REACTVE); VZV PCR RESULT <500 (<500 copies)
== END 2017-09-13 11:58 | disposition home or self-care (01) | DRG 92 ==
LOC: NEPE 18:05 → NEDA 20:08 → N03A 22:11 → N04B 09-12 17:20
PROVIDERS: ADMIT Internal Medicine Critical Care Medicine; ATTEND Internal Medicine Critical Care Medicine
PROC: 009U3ZX Drainage of Spinal Canal, Percutaneous Approach, Diagnostic (ICD-10-PCS; principal; 2017-09-10)
DX: G92 Toxic encephalopathy (principal); N17.9 Acute kidney failure, unspecified; E72.20 Disorder of urea cycle metabolism, unspecified; N39.0 Urinary tract infection, site not specified; J98.11 Atelectasis; F11.20 Opioid dependence, uncomplicated; T40.2X5A Adverse effect of other opioids, initial encounter; T42.6X5A Adverse effect of other antiepileptic and sedative-hypnotic drugs, initial encounter; D18.02 Hemangioma of intracranial structures; M79.7 Fibromyalgia; J44.9 Chronic obstructive pulmonary disease, unspecified; N83.202 Unspecified ovarian cyst, left side; R73.9 Hyperglycemia, unspecified; B96.20 Unspecified Escherichia coli [E. coli] as the cause of diseases classified elsewhere; F17.210 Nicotine dependence, cigarettes, uncomplicated; F32.9 Major depressive disorder, single episode, unspecified; Z88.0 Allergy status to penicillin
CPT/HCPCS: 36556; 70450; 70496; 70498; 70551; 71045; 74176; 76775; 80048; 80053; 80202; 80307; 81001; 82140; 82570; 82945; 82948; 83605; 84155; 84157; 84300; 84443; 85025; 85027; 85610; 85730; 86403; 86592; 86651; 86652; 86653; 86654; 87015; 87040; 87070; 87077; 87086; 87116; 87186; 87205; 87206; 87529; 87641; 87799; 89051; 93005; 94150; 94667; 95819; 96360; J0692; J0696; J1630; J2250; J3370; J7030; J7050; Q9967